=== PATIENT | female | born 1940 | race Two or more races ===

== ENCOUNTER 2024-10-04 13:40 | Inpatient (IN) | payer MEDICARE, MEDICAID, SELFPAY ==
[2024-10-04] VITALS (10 sets, daily range): BP systolic 110–192; BP diastolic 55–84; PULSE 68–107; RESP 16–24; TEMP 36.3–38.6; O2SAT 95–97; BMI 24.3; BMI 24.4
--- NOTE | 2024-10-04 14:15 | EKG_ITS ---
[facility] Test Date: 2024-10-04 Pat Name: KEHINDE ORTIZ Department: Room: - Gender: Female Day Care Assistant: : 1940 Requested By: Deanna Pimentel ([facility]) Micaela Order Number: [id number] Reading MD: Deanna Pimentel ([facility]) Micaela Measurements Intervals [place] Rate: 103 P: 95 OR: 141 QRS: 4 QRSD: 81 T: 32 QT: 307 QTc: 403 Interpretive Statements SINUS TACHYCARDIA NONSPECIFIC T-WAVE ABNORMALITY ABNORMAL RHYTHM ECG No previous ECG available for comparison /store/S0/[id number]/ecg/[id number].pdf
--- NOTE | 2024-10-04 14:19 | PD.EDRME ---
Rapid Medical Screening Exam RME Arrival date/time: 10/04/24 13:40 This is an 83-year-old female presents the emergency department accompanied with granddaughter for complaints of generalized malaise fatigue and recent UTI. I have greeted and performed a focused initial assessment of this patient. Initial appropriate labs ordered at this time. A comprehensive ED assessment and evaluation of the patient and analysis of all test and completion of medical decision making process will be conducted by additional ED provider. Chief Complaint: General Adult/Misc Complain Time Seen by Provider: 10/04/24 13:54 Vital signs: Vital Signs Temperature 99.7 F 10/04/24 13:57 Pulse Rate 107 H 10/04/24 13:57 Respiratory Rate 18 10/04/24 13:57 Blood Pressure 192/84 H 10/04/24 13:57 Pulse Oximetry (%) 95 10/04/24 13:57 Oxygen Delivery Method Room Air 10/04/24 13:57
[2024-10-04 14:39] LABS: Lactate (Lactic Acid) 2.4 mMol/L (0.4-2.0)
[2024-10-04 14:40] LABS: Basophils % (Auto) 0 % (0-2.5); Eosinophils % (Auto) 0 % (0-10); Immature Granulocytes % (Auto) 1 % (0-0); Immature Granulocytes Auto 0.05 Thou/mm3 (0.00-0.00); Lymphocytes # (Auto) 0.9 Thou/mm3 (1.0-4.8); Lymphocytes % (Auto) 12 % (10-50); Mean Corpuscular HGB Conc 32.3 g/dl (31.0-37.0); Mean Corpuscular Hemoglobin 26.5 pg (25.0-35.0); Mean Corpuscular Volume 82 fL (80-100); Monocytes # (Auto) 1.1 Thou/mm3 (0.0-0.8); Monocytes % (Auto) 14 % (0-12); Neutrophils # (Auto) 5.7 Thou/mm3 (1.8-7.7); Neutrophils % (Auto) 73 % (37-80); Nucleated Red Blood Cell % 0 /100 WBC (0); Platelet Count 350 Thou/mm3 (140-440); RDW Standard Deviation 44.6 fL (36.4-46.3); Red Blood Count 3.77 Miln/mm3 (4.00-5.20); White Blood Count 7.7 Thou/mm3 (3.6-11.0)
[2024-10-04 15:05] LABS: INR 1.2 (0.9-1.3); Prothrombin Time 12.7 Seconds (9.0-12.2)
[2024-10-04 15:09] LABS: Alanine Aminotransferase 52 U/L (10-49); Albumin, Serum 3.5 gm/dL (3.4-4.8); Albumin/Globulin Ratio 0.6 (1.2-2.2); Alkaline Phosphatase 114 U/L (46-116); Anion Gap 10 (7-16); Aspartate Amino Transferase 77 U/L (0-34); BUN/Creatinine Ratio 23 Ratio (12-20); Bilirubin,Total 1.2 mg/dL (0.3-1.2); Blood Urea Nitrogen 25 mg/dL (9-23); Calcium 9.3 mg/dL (8.3-10.6); Calcium (Corrected) 9.7 mg/dL (8.5-10.1); Chloride 97 mMol/L (98-107); Creatinine (Component) 1.1 mg/dL (0.6-1.3); Estimated Creatinine Clearance 25.7 mL/min (>60); Globulin 5.5 gm/dL (2.3-3.5); Glucose 130 mg/dL (74-106); Magnesium 1.9 mg/dL (1.6-2.6); Osmolality,Calculated 263 (275-295); Potassium 4.4 mMol/L (3.4-5.1); Procalcitonin 1.01 ng/ml (0.0-0.49); Sodium 128 mMol/L (136-145); Troponin I < 0.020 ng/mL (0.0-0.045); eGFR 49 See Note
[2024-10-04 15:12] LABS: Collection Type, Urine Clean Catch
[2024-10-04 15:21] LABS: B-Type Natriuretic Peptide 134 pg/mL (0-100)
[2024-10-04 15:42] LABS: Bacteria,Urine 4+; Bilirubin,Urine Negative (Negative); Blood,Urine 1+ (Negative); Clarity,Urine Turbid (Clear/Hazy); Color,Urine Yellow (Lt Yel-Yel); Glucose, Urine Negative (Negative); Ketones,Urine Negative (Negative); Leukocyte Esterase,Urine Positive (Negative); Nitrite,Urine Negative (Negative); PH,Urine 5.5 (5.0-7.0); Protein,Urine 1+ (Neg - Trace); RBC,Urine 4 /hpf (0-3); Specific Gravity,Urine 1.021 (1.001-1.035); Squamous Epithelial Cell,Urine 1 /hpf (0-5); Transitional Epi Cells,Urine 1 /hpf (0-5); WBC,Urine 131 /hpf (0-5)
--- NOTE | 2024-10-04 15:48 | PC.NURSE ---
PT IN BY DAUGHTER FOR UNSTEADY GAIT, LETHARGIC, AND DECREASED APPETITE AND URINARY SYMPTOMS. PT HAS SEEN HER PMD ABOUT A WEEK AGO AND IS AWAITING RESULTS OF URNIE. DAUGHTER STATES THAT THIS IN NOT THE PT'S BASELINE. PT IS A/OX3, UNABLE TO GIVE THE DATE. PT DOES STATES THAT PMD STATES THAT SHE MAY HAVE A VIRUS OR A UTI. PT IS RESTING WITH NO DISTRESS NOTED AT THIS TIME. PT IS CONNETED TO MONITOR, DAUGHTER IS AT BEDSIDE AND CALL LIGHT IS WITH IN REACH.
--- NOTE | 2024-10-04 16:08 | EDNOTE_ITS ---
ED General RME/HPI General Chief complaint: General Adult/Misc Complain Stated complaint: WEAKNESS WITH N/V, PAINFUL URINATION Time Seen by Provider: 10/04/24 13:54 Arrival date/time: 10/04/24 13:40 RME / HPI RME / HPI narrative: 10/04/24 13:40 This is an 83-year-old female presents the emergency department accompanied with granddaughter for complaints of generalized malaise fatigue and recent UTI. I have greeted and performed a focused initial assessment of this patient. Initial appropriate labs ordered at this time. A comprehensive ED assessment and evaluation of the patient and analysis of all test and completion of medical decision making process will be conducted by additional ED provider. DR. SANDERS MAIN ED EVALUATION: 83 year old female presents to the Emergency Department accompanied by her daughter who translated with complaints of fevers, chills, sweating, nausea, vomiting, decreased appetite, weight loss, generalized weakness and now unsteady. Onset of symptoms 2 weeks intermittently. Per daughter, patient is usually very active and walks a lot without a cane or walker but in the last week she just wants to sleep and rest. Daughter is concerned that patient is too weak and now is at risk for falling. Patient denies any of the following: fall, injury, cough, blood in the stools, diarrhea, back pain, skin rash or sores, or any other symptoms at this time. PMHx: Hypertension. Tubal Ligation. Last UTI was diagnosed 1 year ago and followed as an outpatient. Allergies to Tylenol and penicillins, both cause hives. Social Hx: No tobacco, alcohol, or substance use. PCP is at [facility] Medications ?Medication ?Instructions ?Recorded ?Confirmed metoprolol succinate 50 mg 50 mg PO BID 10/04/2410/04 tablet,extended release 24 hr Previous Rx's ?Medication ?Instructions ?Recorded ibuprofen 600 mg tablet 600 mg PO Q6H PRN pain #30 t abs 12/11/20 Allergies Allergy/AdvReac Type Severity Reaction Status Date / Time acetaminophen (From Tylenol) Allergy Severe Hives Verified 10/04/24 13:43 Penicillins Allergy Severe RASH,HIVES Verified 10/04/24 13:43 Review of Systems Review of Systems Systems Reviewed: All systems reviewed, normal except as documented Narrative Review of Systems: Constitutional: POSITIVES: fevers, chills, sweating, decreased appetite, weight loss, generalized weakness Eyes: DENIES: loss of vision; Head/Ear/Nose: DENIES: loss of hearing. Throat: DENIES: dysphagia. Cardiovascular: DENIES: chest pain, dyspnea, or syncope. Respiratory: DENIES: shortness of breath; Gastrointestinal: POSITIVES: nausea, vomiting DENIES: rectal bleeding or melena. Genitourinary: DENIES: dysuria (painful or difficult urination); Musculoskeletal: DENIES: arthralgia (pain in a joint); Skin: DENIES: rash; Neurological: POSITIVES: generalized weakness DENIES: loss of function or movement; Psychiatric: DENIES: recent major life stressor, emotional problem, illicit drug use or abuse; Endocrinology: DENIES: weight change,; Hematologic/Lymphatic: DENIES: abnormal bruising. Allergic/Immunologic: DENIES: urticaria (hives). Past Medical History Past Medical History CARDIAC: Positive Hypertension OTHER HISTORY: Positive Anesthesia Reactions (HARD TIME WAKING UP) Surgical History SURGICAL: Positive Tubal Ligation OTHER SURGICAL HX: HEEL SPURS REMOVED Social History SMOKING STATUS: Never smoker SUBSTANCE USE: does not use ALCOHOL: Never ED Exam Narrative Physical exam: Physical Exam: General: The vital signs were reviewed. I walk in the room at 1620 hrs. she is got a fever 101.3 she is tachycardic. She is alert appears tired but interacts. Eyes appear little sunken. The patient is non-toxic, in no apparent distress and appears healthy with a patent airway, no respiratory distress and has no apparent circulatory problems. Head & Scalp: Normocephalic, atraumatic. Face: Appears normal and is without lesions, deformity. Ears: Left external pinna appears normal. Right external pinna appears normal. Eyes: The sclera is anicteric. No obvious photophobia. The Left and Right Orbit/Lid/Conjunctiva appears normal without swelling, discoloration or injection. Nose: The nose is without deformity, discharge or tenderness; Throat: Appears normal. The mucous membranes are pink and moist without exudates, redness or mass seen. The tongue appears normal. Neck: The neck is supple and no apparent mass or adenopathy. Chest: The chest wall is normal in size and symmetry and has no chest wall tenderness or crepitus. The patient displays normal ventilator effort without retractions, accessory muscle use and has adequate air movement bilaterally with no wheezes and no rales. Cardiovascular: Regular rate and rhythm; No murmurs, rubs, or gallops; Gastrointestinal: The abdomen appears normal. No obvious hernias or mass. The abdomen is soft and benign, non-distended, with no pain, no guarding and no rebound tenderness. Bowel sounds are present and normal sounding. No CVA tenderness. Genitourinary: Back/Spine: Normal inspection Extremities/Musculoskeletal/lymphatic: The bilateral upper and lower extremities are warm. There is no evidence of arterial insufficiency. There is no evidence of venous insufficiency/edema. The patient spontaneously moves bilateral upper and lower extremities with no pain and no limitation of movement. There is no apparent, injury or trauma. Skin: The skin is warm, dry and intact. No rashes. No petechia. No purpura. No abnormal bruising. The color is appropriate with no cyanosis. Mental status/Psychiatric: Mental status is appropriate for age. The patient has no apparent delusions, visual hallucinations, no apparent audible hallucinations. The patient has no apparent suicidal thoughts/ideation and no apparent homicidal thoughts/ideation. Neurological: The patient is awake, alert, interactive, cordial, cooperative and is oriented to name and situation. The patient follows commands and answers historical question with no impairment. There is no visual disturbance apparent. The pupils are equal and reactive bilaterally with normal eye movements and no diplopia The bilateral upper and lower extremities have normal strength, normal range of motion and normal functioning. The gait, station and balance were not tested due to acuity Course Course Course Narrative: 1622: Sepsis alert initiated. Orders made at this time are congruent with ED Adult Sepsis Order List. Re-evaluation is to be completed. 1656: Fluids started. 1726: Sepsis reassessment performed consisting of lab review, vitals, physical exam including auscultation of heart, lungs, and visual evaluation of capillary refills, mucosal membranes and extremities. Quality Measures Current suspected stage: sepsis Possible source: unknown Blood cultures ordered: yes Antibiotic ordered: Yes Pertinent labs: 10/04/24 10/04/24 14:34 17:10 Lactic Acid 2.4 H mMol/L 1.7 mMol/L (0.4-2.0) (0.4-2.0) Procalcitonin 1.01 H ng/ml (0.0-0.49) sepsis Orders Category Date Time Status Bedside COVID-19 Antigen Test NOW Care 10/04/24 16:18 Active Bedside Influenza A&B Antigen Test NOW Care 10/04/24 16:18 Completed EKG (ED ONLY) *Do not use* NOW Care 10/04/24 14:15 Completed Miscellaneous Nursing Order X1 Care 10/04/24 16:31 Active EKG (ED Only) Stat Exams 10/04/24 14:15 Draft XR chest 1V portable Stat Exams 10/04/24 16:17 Completed BNP [B-Type Natriuretic Peptide] Stat Lab 10/04/24 14:34 Completed Blood Culture (Lab) Stat Lab 10/04/24 17:10 Received CBC Stat Lab 10/04/24 14:34 Completed Comprehensive Metabolic Panel Stat Lab 10/04/24 14:34 Completed Lactate (Lactic Acid) Stat Lab 10/04/24 14:34 Completed Lactate (Lactic Acid) Stat Lab 10/04/24 17:10 Completed Magnesium Stat Lab 10/04/24 14:34 Completed Procalcitonin Stat Lab 10/04/24 14:34 Completed Prothrombin Time with INR Stat Lab 10/04/24 14:34 Completed RSV [Respiratory Syncytial Virus Ag] Stat Lab 10/04/24 16:33 Completed Strep A Rapid Stat Lab 10/04/24 16:33 Completed Troponin I Stat Lab 10/04/24 14:34 Completed Urinalysis Stat Lab 10/04/24 14:43 Completed Urine Culture Stat Lab 10/04/24 14:43 Received Ibuprofen Tab [Motrin Tab] Med 10/04/24 17:23 Discontinued 400 mg PO X1 ONE Sodium Chloride 0.9% 1000 ml [Ns] 1,000 ml Med 10/04/24 16:35 Discontinued IV 1,500 mls/hr Sodium Chloride 0.9% 1000 ml [Ns] 1,534 ml Med 10/04/24 17:08 Active IV 1,534 mls/hr cefTRIAXone/D5w 1gm IV premix [Rocephin/D5w 1gm IV Med 10/04/24 16:18 Discontinued premix] 1 gm in 50 ml IV X1 Vital Signs Vital signs: Vital Signs Temperature 99.7 F 10/04/24 13:57 Pulse Rate 107 H 10/04/24 13:57 Respiratory Rate 18 10/04/24 13:57 Blood Pressure 192/84 H 10/04/24 13:57 Pulse Oximetry (%) 95 10/04/24 13:57 Oxygen Delivery Method Room Air 10/04/24 13:57 [facility] Patient data External records reviewed:: [facility] previous records (Reviewed last ED visit dated 12/11/20 discharged with the following: Hip pain, bilateral) Clinical information provided by:: patient and family (daughter who translated) Social determinants that could affect healthcare access:: none Patient has the following chronic illnesses:: Hypertension. Tubal Ligation. Last UTI was diagnosed 1 year ago and followed as an outpatient. Allergies to Tylenol and penicillins, both cause hives. How is presenting disease/condition affected by chronic disease/condition?: e xacerbated by Evaluation data The following diagnostics were reviewed and interpreted by me:: lab results, radiology exam(s) and EKG tracing(s) (EKG#1: EKG at 1428 hours. Interpreted by me: sinus tachycardia, rate 103, no STEMI) Lab and/or radiology exams considered but not ordered:: none Interpretation Summary: See above under [facility] narrative. RADIOLOGY Procedure(s): XR chest 1V portable Accession Number(s): [id number] cc: Verna Moreno; Thierry Sanders MD; Jose Galo MD~ Examination: AP chest single view TECHNIQUE: AP portable semiupright chest single view Exam date and time: October 04, 2024 at 1547 hours INDICATIONS: Fever weakness beginning 3 days ago FINDINGS: Normal heart size Mild accentuation of the basilar bronchovascular markings No pneumonia. Prominent osteopenia IMPRESSION: Mild basilar bronchitis pattern Dictated By: Jose Galo MD Medications Medications considered but not ordered:: none Medication administrations:: Medication Administration History Sodium Chloride (Ns) 1,534 mls @ 1,534 mls/hr 30 ml/kg infuse over 60 min (1534 ml) IV .Q1H ONE; Protocol Stop: 10/04/24 18:07 Last Admin: 10/04/24 17:18 Dose: 1,534 mls/hr Documented By: BELA Discontinued Medications Ceftriaxone Sodium/Dextrose (Rocephin/D5w 1gm Iv Premix) 1 gm in 50 mls @ 100 mls/hr IV X1 ONE Stop: 10/04/24 16:47 Last Infusion: 10/04/24 17:55 Dose: Infused Documented By: VRLuzma Admin: 10/04/24 17:14 Dose: 100 mls/hr Documented By: BELA Sodium Chloride (Ns) 1,000 mls @ 1,500 mls/hr IV .Q40M ONE; Protocol Stop: 10/04/24 17:14 Last Admin: 10/04/24 17:18 Dose: Not Given Documented By: BELA Non-Admin Reason: Cancelled by Provider Ibuprofen (Ibuprofen Tab 400 Mg Tablet) 400 mg PO X1 ONE Stop: 10/04/24 17:24 Last Admin: 10/04/24 17:41 Dose: 400 mg Documented By: BELA see above if any Consultations Consultation(s) initiated? (list below): Yes Consultation #1 (Physician, Specialty, Details): Discussed test HPI, PMHx, lab, radiology results and/or management with hospitalist. Will admit for further evaluation and management. Accepts patient for admission. Time: 17:59 Diagnosis Differential Diagnosis ED Complaint MDM: UTI, sepsis, viral illness Most likely diagnosis given after review of the tests above:: See below Admission Indicated Admission indicated?: indicated Explain why admission is indicated or not indicated:: Diagnoses meet admission criteria. Admission Request Was there a request for admission?: Yes Admission Attestation Admission request attestation: Discussed case with [] from Hospitalist service regarding admission. Discussed patients ED course, exam findings, labs, and radiology results. The Hospitalist [agrees,declines] to accept the patient for admission. Disposition Plan Disposition Plan: Admit Medical Decision Making MDM Narrative MDM Narrative: Patient was moved from the waiting room to room 10 and it is apparent she has a fever now she is tachycardic she is got a UTI and a septic alert was called based on that. Lactic acid is 2.4. Rocephin has been ordered and a fluid bolus is going to be initiated here. Patient has been sick for the last 2 weeks with fevers and chills off-and-on with some nausea and vomiting and decreased p.o. intake and in the last 24 hours she becomes so weak that she is unable to walk on her feet and is very unsteady and at risk for falling. This history is provided by the patient's daughter who is a nurse for [employer] Patient has had outpatient UTIs but not been admitted and has not been at this hospital for over 4 years Laboratory studies reveal RSV and group A strep negative. Urine has 131 white blood cells present. 4 red cells. BNP is elevated 134. Troponin is negative total bilirubin is 1.2 AST 77 ALT is 52 slightly elevated. BUN 25 creatinine 1.1 consistent with prerenal azotemia and mild dehydration. Anion gap is 10 carbadox it is slightly low at 21. PT/INR 12.7 and 1.2. White count of 7.7 hemoglobin is 10.0 with a mild anemia Call the hospital spoke with Dr. Mo and they will admit the patient for sepsis urinary tract infection and weakness. Corrine Reid am scribing for and in the presence of Dr. Sanders. Differential Diagnosis Differential Diagnosis: UTI, sepsis, viral illness Lab Data 10/04/24 14:34 10/04/24 14:34 Labs: Lab Results 10/04/24 10/04/24 10/04/24 Range/Units 14:34 14:43 16:33 WBC 7.7 (3.6-11.0) Thou/mm3 RBC 3.77 L (4.00-5.20) Miln/mm3 Hgb 10.0 L (12.0-16.0) g/dL Hct 31.0 L (36.0-46.0) % MCV 82 (80-100) fL MCH 26.5 (25.0-35.0) pg MCHC 32.3 (31.0-37.0) g/dl RDW Std Deviation 44.6 (36.4-46.3) fL Plt Count 350 (140-440) Thou/mm3 Neut % (Auto) 73 (37-80) % Lymph % (Auto) 12 (10-50) % Lassen % (Auto) 14 H (0-12) % Eos % (Auto) 0 (0-10) % Baso % (Auto) 0 (0-2.5) % Neut # (Auto) 5.7 (1.8-7.7) Thou/mm3 Lymph # (Auto) 0.9 L (1.0-4.8) Thou/mm3 [place]assen # (Auto) 1.1 H (0.0-0.8) Thou/mm3 Eos # (Auto) 0.0 (0.0-0.5) Thou/mm3 Baso # (Auto) 0.0 (0.0-0.2) Thou/mm3 Immature Gran # (Auto) 0.05 H (0.00-0.00) Thou/mm3 Absolute Nucleated RBC 0.00 (0.00-0.00) Thou/mm3 Immature Gran % 1 H (0-0) % Nucleated RBC % 0 (0) /100 WBC PT 12.7 H (9.0-12.2) Seconds INR 1.2 (0.9-1.3) Sodium 128 L (136-145) mMol/L Potassium 4.4 (3.4-5.1) mMol/L Chloride 97 L (98-107) mMol/L Carbon Dioxide 21.0 (20.0-31.0) mMol/L Anion Gap 10 (7-16) BUN 25 H (9-23) mg/dL Creatinine 1.1 (0.6-1.3) mg/dL Estim Creat Clear Calc 25.7 L (>60) mL/min eGFR 49 L (60 - ) See Note BUN/Creatinine Ratio 23 H (12-20) Ratio Glucose 130 H (74-106) mg/dL Calculated Osmolality 263 L (275-295) Lactic Acid 2.4 H (0.4-2.0) mMol/L Calcium 9.3 (8.3-10.6) mg/dL Corrected Calcium 9.7 (8.5-10.1) mg/dL Magnesium 1.9 (1.6-2.6) mg/dL Total Bilirubin 1.2 (0.3-1.2) mg/dL AST 77 H (0-34) U/L ALT 52 H (10-49) U/L Alkaline Phosphatase 114 (46-116) U/L Troponin I < 0.020 (0.0-0.045) ng/mL B-Natriuretic Peptide 134 H (0-100) pg/mL Total Protein 9.0 H (5.7-8.2) gm/dL Albumin 3.5 (3.4-4.8) gm/dL Globulin 5.5 H (2.3-3.5) gm/dL Albumin/Globulin Ratio 0.6 L (1.2-2.2) Procalcitonin 1.01 H (0.0-0.49) ng/ml Ur Collection Type Clean Catch Urine Color Yellow (Lt Yel-Yel) Urine Clarity Turbid A (Clear/Hazy) Urine pH 5.5 (5.0-7.0) Ur Specific [place] 1.021 (1.001-1.035) Urine Protein 1+ A (Neg - Trace) Urine Glucose (UA) Negative (Negative) Urine Ketones Negative (Negative) Urine Blood 1+ A (Negative) Urine Nitrite Negative (Negative) Urine Bilirubin Negative (Negative) Urine Urobilinogen (Auto) 3.0 (0.0-1.0) mg/dL Ur Leukocyte Esterase Positive (Negative) Urine RBC 4 H (0-3) /hpf Urine WBC 131 H (0-5) /hpf Ur Squamous Epith Cells 1 (0-5) /hpf Ur Transition Epith Cell 1 (0-5) /hpf Urine Bacteria 4+ A (None) RSV Rapid Negative (Negative) Group A Strep Rapid Negative (Negative) 10/04/24 Range/Units 17:10 WBC (3.6-11.0) Thou/mm3 RBC (4.00-5.20) Miln/mm3 Hgb (12.0-16.0) g/dL Hct (36.0-46.0) % MCV (80-100) fL MCH (25.0-35.0) pg MCHC (31.0-37.0) g/dl RDW Std Deviation (36.4-46.3) fL Plt Count (140-440) Thou/mm3 Neut % (Auto) (37-80) % Lymph % (Auto) (10-50) % Lassen % (Auto) (0-12) % Eos % (Auto) (0-10) % Baso % (Auto) (0-2.5) % Neut # (Auto) (1.8-7.7) Thou/mm3 Lymph # (Auto) (1.0-4.8) Thou/mm3 Lassen # (Auto) (0.0-0.8) Thou/mm3 Eos # (Auto) (0.0-0.5) Thou/mm3 Baso # (Auto) (0.0-0.2) Thou/mm3 Immature Gran # (Auto) (0.00-0.00) Thou/mm3 Absolute Nucleated RBC (0.00-0.00) Thou/mm3 Immature Gran % (0-0) % Nucleated RBC % (0) /100 WBC PT (9.0-12.2) Seconds INR (0.9-1.3) Sodium (136-145) mMol/L Potassium (3.4-5.1) mMol/L Chloride (98-107) mMol/L Carbon Dioxide (20.0-31.0) mMol/L Anion Gap (7-16) BUN (9-23) mg/dL Creatinine (0.6-1.3) mg/dL Estim Creat Clear Calc (>60) mL/min eGFR (60 - ) See Note BUN/Creatinine Ratio (12-20) Ratio Glucose (74-106) mg/dL Calculated Osmolality (275-295) Lactic Acid 1.7 (0.4-2.0) mMol/L Calcium (8.3-10.6) mg/dL Corrected Calcium (8.5-10.1) mg/dL Magnesium (1.6-2.6) mg/dL Total Bilirubin (0.3-1.2) mg/dL AST (0-34) U/L ALT (10-49) U/L Alkaline Phosphatase (46-116) U/L Troponin I (0.0-0.045) ng/mL B-Natriuretic Peptide (0-100) pg/mL Total Protein (5.7-8.2) gm/dL Albumin (3.4-4.8) gm/dL Globulin (2.3-3.5) gm/dL Albumin/Globulin Ratio (1.2-2.2) Procalcitonin (0.0-0.49) ng/ml Ur Collection Type Urine Color (Lt Yel-Yel) Urine Clarity (Clear/Hazy) Urine pH (5.0-7.0) Ur Specific [place] (1.001-1.035) Urine Protein (Neg - Trace) Urine Glucose (UA) (Negative) Urine Ketones (Negative) Urine Blood (Negative) Urine Nitrite (Negative) Urine Bilirubin (Negative) Urine Urobilinogen (Auto) (0.0-1.0) mg/dL Ur Leukocyte Esterase (Negative) Urine RBC (0-3) /hpf Urine WBC (0-5) /hpf Ur Squamous Epith Cells (0-5) /hpf Ur Transition Epith Cell (0-5) /hpf Urine Bacteria (None) RSV Rapid (Negative) Group A Strep Rapid (Negative) Critical Care Time Critical Care Time Critical Care Time: Yes Total Critical Care Time (min.): 45 Attestation: The high probability of sudden, clinically significant deterioration in the patient?s condition required the highest level of my preparedness to intervene urgently. The services I provided to this patient were to treat and/or prevent clinically significant deterioration. Services included the following: chart data review, reviewing nursing notes and/or old charts, documentation time, income tax consultant collaboration regarding findings and treatment options, medication orders and management, direct patient care, vital sign assessments and ordering, interpreting and reviewing diagnostic studies and lab tests. Aggregate critical care time includes only time during which I was engaged in work directly related to the patient?s care, as described above, whether at bedside or elsewhere in the Emergency Department. It did not include time spent performing other reported procedures or the services of residents, students, nurses or physician assistants. Discharge Plan Plan Patient Disposition: Admit Acute Care w/in Hospital Disposition Comment: Hospitalist to admit Prescriptions/Referrals Prescriptions/Med Rec: No Action ibuprofen 600 mg tablet 600 mg PO Q6H PRN (Reason: pain) Qty: 30 0RF metoprolol succinate 50 mg tablet extended release 24 hr 50 mg PO BID Patient Comments: take 1 tablet by mouth twice a day Referrals: Venra Moreno [Primary Care Provider] - In 1 week Problem List Clinical Impression: Sepsis, Urinary tract infection, Weakness, Elevated lactic acid level, Unable to ambulate Patient/Caregiver Discharge Instructions Print Language: Kazakh Stand Alone Forms: Maria Guadalupe Award Info., Patient Portal Info Letter
--- NOTE | 2024-10-04 16:17 | XR_ITS ---
Examination: AP chest single view TECHNIQUE: AP portable semiupright chest single view Exam date and time: October 04, 2024 at 1547 hours INDICATIONS: Fever weakness beginning 3 days ago FINDINGS: Normal heart size Mild accentuation of the basilar bronchovascular markings No pneumonia. Prominent osteopenia IMPRESSION: Mild basilar bronchitis pattern
[2024-10-04 17:10] LABS: Strep A Rapid Negative (Negative)
[2024-10-04] MEDS: cefTRIAXone/D5w 1gm IV premix 1 GM/50 ML BAG IV (17:14)
[2024-10-04 17:17] LABS: Respiratory Syncytial Virus Ag Negative (Negative)
[2024-10-04 17:22] LABS: Lactate (Lactic Acid) 1.7 mMol/L (0.4-2.0)
[2024-10-04 17:36] LABS: Reflex Lactate? Y
[2024-10-04] MEDS: IBUPROFEN TAB 400 MG TABLET PO (17:41)
--- NOTE | 2024-10-04 20:13 | XR_ITS ---
Examination: CT abdomen and pelvis without contrast. Coronal 3-D reconstructions. Sagittal 2-D reconstructions. Date and time of exam:October 04, 2024 at 2014 hours INDICATIONS: Urinary tract infections flank pain hematuria today CTDI: vol (mGy): 6.31 DLP: (mGycm): 337 Technique: Axial images of the abdomen have been obtained, 3 mm slice thickness Intravenous contrast material has not been administered. Low dose protocols were performed. One or more of the following dose reduction techniques were used; automated exposure control, adjustment of the mA and/or KV according to patient size, use of iterative reconstruction technique. Findings: Atelectasis versus mild pneumonia left base Trace pericardial effusion. Liver is irregular in contour fatty infiltration Mildly dense gallbladder Spleen not enlarged No pancreatic or adrenal mass Mild bilateral renal parenchymal scar formation No hydronephrosis or renal or ureteral calculi About aortic calcification no aneurysmal dilatation Normal appendix 15 mm fat-containing umbilical hernia Atrophic uterus No pelvic mass No bladder calculi or bladder mass Severe osteopenia chronic compression fracture L2, L1 IMPRESSION: Atelectasis versus mild pneumonia left base, clinical correlation advised Primary hepatocellular disease versus cirrhosis Mild bilateral renal parenchymal scar formation No renal or ureteral calculi, no hydronephrosis Normal appendix No bladder mass or bladder calculi
--- NOTE | 2024-10-04 20:19 | PC.NURSE ---
Pt taken to CT via [facility]
--- NOTE | 2024-10-04 21:35 | ESHP_ITS ---
<Statement entered by Victoriano Ceballos MD - 10/05/24 05:15> I reviewed above note and agree with findings and plans. I have also personally examined the patient with medicine team and went over assessment and plan with medical team including social media intern and resident physician. Documentation for date of: 10/04/24 HPI History of Present Illness Chief complaint: Generalized bodyache History of present illness: HPI: An 83 years old male patient known case of HTN, was brought to the ED due hx of 2 weeks of dysurea and frequency associated with dark urine discoloration. The daughter who works as a nurse reported that she has not used any antibiotics. Today, her daughter noticed that the patient looks week and lethargic. Patient started to complain of generalized weakness and arthralgia associated with low grade fever and chills. She also mentioned bloody urine. Patient denied any chest or abdominal pain, however she reported some nausea and anorexia. Home medications: ED course: on presentation patient met sepsis criteria, He has HR of 107, BP was 192/84, temp 101.3, looked ill, CBC showed Hb 10.0 WBC WNL, CMP showed Na 128, BUN was 25, S.cr 1.1, Gluc 130, AST and ALT 77 and 52 respectively, BNP 134, Procal 1.01, UA showed [id number], +4 Bacteria, + blood. Abdomen/Pelvice CT WO showed Atelectasis versus mild pneumonia left base, Primary hepatocellular disease versus cirrhosis. Patient was given 2L of fluids, and was given ceftrixone. PMH:HTN Social hx: Alcohol:Denied Tobacco:Denied Illicit drugs:Denied Allergies:Pencillin and Tylenol Review of Systems Review of Systems Systems Reviewed: All systems reviewed, normal except as documented Exam Vital Signs Temp Pulse Resp BP Pulse Ox O2 Del Method 97.9 F 72 16 110/55 L 96 Room Air 10/04/24 21:05 10/04/24 21:05 10/04/24 21:05 10/04/24 21:05 10/04/24 21:05 10/04/24 21:05 Narrative Exam GEN: AOx3,Turkmen speaker able to speak full sentences HEENT: NC/AC, oral mucosa moist, neck supple CVS: RRR, S1-S2 present, no murmurs appreciated RESP: CTAB GI: soft,non distended, non tender, NBS MSK: able to move all 4 limbs, no lower extremity edema SKIN: warm and dry VAMP MARKER: CN II-XII and Sensation grossly intact. Results: Labs 10/04/24 14:34 10/04/24 14:34 Labs: Short CBC 10/04/24 Range/Units 14:34 WBC 7.7 (3.6-11.0) Thou/mm3 Hgb 10.0 L (12.0-16.0) g/dL Hct 31.0 L (36.0-46.0) % Plt Count 350 (140-440) Thou/mm3 BMP 10/04/24 14:34 Sodium 128 L Potassium 4.4 Chloride 97 L Carbon Dioxide 21.0 BUN 25 H Creatinine 1.1 Glucose 130 H Calcium 9.3 Cardiac Enzymes 10/04/24 Range/Units 14:34 Troponin I < 0.020 (0.0-0.045) ng/mL Liver Function 10/04/24 Range/Units 14:34 Total Bilirubin 1.2 (0.3-1.2) mg/dL AST 77 H (0-34) U/L ALT 52 H (10-49) U/L Alkaline Phosphatase 114 (46-116) U/L Albumin 3.5 (3.4-4.8) gm/dL Urine 10/04/24 Range/Units 14:43 Urine Color Yellow (Lt Yel-Yel) Urine Clarity Turbid A (Clear/Hazy) Urine pH 5.5 (5.0-7.0) Ur Specific [place] 1.021 (1.001-1.035) Urine Protein 1+ A (Neg - Trace) Urine Glucose (UA) Negative (Negative) Quality Measures Quality Measures sepsis Current suspected stage: sepsis Possible source: unknown Blood cultures ordered: yes Antibiotic ordered: Yes Advance care planning discussed with:: patient and child Medications Home Medications and Allergies Home Medications ?Medication ?Instructions ?Recorded ?Confirmed ?Type metoprolol succinate 50 mg 50 mg PO BID 10/04/2410/04 History tablet,extended release 24 hr Allergies Allergy/AdvReac Type Severity Reaction Status Date / Time acetaminophen (From Tylenol) Allergy Severe Hives Verified 10/04/24 13:43 Penicillins Allergy Severe RASH,HIVES Verified 10/04/24 13:43 Visit Medications Lactated Ringer's (Lactated Ringers) 1,000 mls @ 75 mls/hr IV .[id number] [facility] Stop: 10/05/24 10:49 Ceftriaxone Sodium 1 gm/ (Sodium Chloride) 50 mls @ 100 mls/hr IV QDAY [facility] Stop: 10/11/24 21:29 Ibuprofen (Ibuprofen Tab 400 Mg Tablet) 400 mg PO Q6HR PRN PRN Reason: Fever > 101 Stop: 11/03/24 21:23 Ibuprofen (Ibuprofen Tab 600 Mg Tablet) 600 mg PO Q6H PRN PRN Reason: PAIN SCALE 1-3 (mild Stop: 11/03/24 21:23 Metoprolol Succinate (Metoprolol Succinate Xl 25 Mg Tabcr) 50 mg PO BID MAGGIE Stop: 11/03/24 21:44 Ondansetron HCl (Ondansetron Inj 2 Mg/Ml Inj 2 Ml) 4 mg IV Q6H PRN; Protocol PRN Reason: NAUSEA OR VOMITING Stop: 11/03/24 21:23 Pantoprazole Sodium (Pantoprazole 40 Mg Tablet) 40 mg PO QDAY [facility] Stop: 11/04/24 08:59 Sennosides (Senna Tablet) 1 tab PO BID PRN; Protocol PRN Reason: CONSTIPATION Stop: 11/03/24 21:23 Discontinued Medications Ceftriaxone Sodium/Dextrose (Rocephin/D5w 1gm Iv Premix) 1 gm in 50 mls @ 100 mls/hr IV X1 ONE Stop: 10/04/24 16:47 Last Infusion: 10/04/24 17:55 Dose: Infused Sodium Chloride (Ns) 1,000 mls @ 1,500 mls/hr IV .Q40M ONE; Protocol Stop: 10/04/24 17:14 Last Admin: 10/04/24 17:18 Dose: Not Given Sodium Chloride (Ns) 1,534 mls @ 1,534 mls/hr 30 ml/kg infuse over 60 min (1534 ml) IV .Q1H ONE; Protocol Stop: 10/04/24 18:07 Last Infusion: 10/04/24 21:24 Dose: Infused Ibuprofen (Ibuprofen Tab 400 Mg Tablet) 400 mg PO X1 ONE Stop: 10/04/24 17:24 Last Admin: 10/04/24 17:41 Dose: 400 mg Assessment & Plan Plan Summary: An 83 years old male patient known case of HTN, was brought to the ED due hx of 2 weeks of dysurea and frequency associated with dark urine discoloration. Patient was admitted for tx of UTI. #Sepsis 2/2 UTI #UTI #Pneumina vs Atelectasis on presentation patient met sepsis criteria, He has HR of 107, BP was 192/84, temp 101.3, looked ill, CBC showed Hb 10.0 WBC WNL, CMP showed Na 128, BUN was 25, S.cr 1.1, Gluc 130, AST and ALT 77 and 52 respectively, BNP 134, Procal 1.01, UA showed [id number], +4 Bacteria, + blood. Abdomen/Pelvice CT WO showed Atelectasis versus mild pneumonia left base howeve, the patient does not complain of any respiratory sx , Primary hepatocellular disease versus cirrhosis. Patient was given 2L of fluids, and was given ceftrixone. Plan - Admit patient to Med-tele - Started on Ceftrixone 1gm Qday - will not pursue PNA management at this time as the patient does not have any respiratory sx. - Follow up on the C/S results - Continue patient on IV fluid 1/2 maintainence for 1L #Elevated liver enzymes Most likely as a result of sepsis, Patient denied the use of any OTC meds. T.bili is within normal limits Plan - Continue to monitor daily - Consider Acute Hepatitis work up if clicially warrented #Hx of HTN Patient was noticed to be taking metoprolol Suc BID 50mg, Need to be reconcilled Plan - Resume home meds Metoprolol PO qday - Labetalol 10 mg Q2h if SBP >180mmHg. Hospital Maintenance: FEN: Cardiac diet DVT ppx:SCD as the patient has hematuria GI ppx:Protonix PO IV lines:PIV Huff:None Code status:DNI Dispo:Med-Tele - Patient's plan and care discussed with my attending, Dr. Tucker Delaney MD Internal Medicine PGY-2
[2024-10-04 22:00] LABS: Thyroid Stimulating Hormone 1.89 uIU/mL (0.55-4.78)
[2024-10-04] MEDS: METOPROLOL SUCCINATE XL 25 MG TABCR 50 MG PO (22:05)
[2024-10-04] MEDS: RINGERS LACTATED 1000 ML 1,000 ML 75 ML IV (22:06)
[2024-10-05] VITALS (12 sets, daily range): BP systolic 126–155; BP diastolic 63–78; PULSE 61–102; RESP 16–23; TEMP 35.7–36.9; O2SAT 93–99
[2024-10-05 05:51] LABS: Basophils % (Auto) 0 % (0-2.5); Eosinophils % (Auto) 0 % (0-10); Hematocrit 28.5 % (36.0-46.0); Hemoglobin 9.1 g/dL (12.0-16.0); Immature Granulocytes % (Auto) 1 % (0-0); Immature Granulocytes Auto 0.06 Thou/mm3 (0.00-0.00); Lymphocytes # (Auto) 0.4 Thou/mm3 (1.0-4.8); Lymphocytes % (Auto) 9 % (10-50); Mean Corpuscular HGB Conc 31.9 g/dl (31.0-37.0); Mean Corpuscular Hemoglobin 26.8 pg (25.0-35.0); Mean Corpuscular Volume 84 fL (80-100); Monocytes # (Auto) 0.6 Thou/mm3 (0.0-0.8); Monocytes % (Auto) 14 % (0-12); Neutrophils # (Auto) 3.4 Thou/mm3 (1.8-7.7); Neutrophils % (Auto) 76 % (37-80); Nucleated Red Blood Cell % 0 /100 WBC (0); Platelet Count 268 Thou/mm3 (140-440); RDW Standard Deviation 45.2 fL (36.4-46.3); White Blood Count 4.5 Thou/mm3 (3.6-11.0)
[2024-10-05 06:22] LABS: Alanine Aminotransferase 39 U/L (10-49); Albumin, Serum 2.8 gm/dL (3.4-4.8); Albumin/Globulin Ratio 0.6 (1.2-2.2); Alkaline Phosphatase 88 U/L (46-116); Anion Gap 10 (7-16); Aspartate Amino Transferase 49 U/L (0-34); BUN/Creatinine Ratio 26 Ratio (12-20); Bilirubin,Total 0.6 mg/dL (0.3-1.2); Blood Urea Nitrogen 26 mg/dL (9-23); Calcium 9.2 mg/dL (8.3-10.6); Calcium (Corrected) 10.2 mg/dL (8.5-10.1); Carbon Dioxide 23.4 mMol/L (20.0-31.0); Chloride 102 mMol/L (98-107); Estimated Creatinine Clearance 28.3 mL/min (>60); Globulin 4.4 gm/dL (2.3-3.5); Glucose 97 mg/dL (74-106); Magnesium 1.8 mg/dL (1.6-2.6); Osmolality,Calculated 274 (275-295); Phosphorous 3.3 mg/dL (2.4-5.1); Potassium 3.8 mMol/L (3.4-5.1); Sodium 135 mMol/L (136-145); Total Protein 7.2 gm/dL (5.7-8.2); eGFR 55 See Note
[2024-10-05] MEDS: METOPROLOL SUCCINATE XL 25 MG TABCR 50 MG PO (08:24)
[2024-10-05] MEDS: Magnesium Sulfate 4 GM Ivpb 4 GM/50 ML BAG IV (08:24)
[2024-10-05] MEDS: PANTOPRAZOLE 40 MG TABLET PO (08:24)
--- NOTE | 2024-10-05 11:30 | ESPR_ITS ---
Documentation for date of: 10/05/24 Subjective Subjective Interval history: 10/05/2024: Overnight admission for 83-year-old female with past medical history of hypertension presenting with 2 weeks of dysuria, frequency hesitancy and hematuria. Patient was admitted for urinary tract infection and elevated liver enzymes likely secondary to sepsis. Patient seen and examined in hospital bed this morning with patient's daughter bedside. Patient denies having any concerning symptoms at this time such as chest pain/tightness, shortness of breath, lower back pain, suprapubic discomfort or dizziness. Patient's family updated and they are in agreement with the plan of continuing IV antibiotics and having physical therapy work with the patient. Will continue to monitor for any acute changes. Exam Vital Signs Temp Pulse Resp BP Pulse Ox O2 Del Method 96.2 F L 63 16 155/71 H 99 Room Air 10/05/24 08:00 10/05/24 08:24 10/05/24 08:00 10/05/24 08:24 10/05/24 08:00 10/05/24 08:00 Narrative Exam Physical Exam: GENERAL: Awake, answering questions appropriately, appears stated age HEENT: NC/AT. Moist mucosa. PERRLA/EOMI. CARDIO: Heart RRR, no obvious murmurs, no JVD. PULM: No coughing or visible SOB. Lungs CTA B/L. GI: Abdomen soft, NT/ND, +BS. SKIN/MSK/EXT: No wounds/discoloration/rashes/edema/amputations noted. +Pedal pulses present B/L. NEURO: Oriented x3, Moves extremities x4, no focal neurologic deficits noted. Objective Labs 10/06/24 05:29 10/06/24 05:29 Labs: Laboratory Results - last 24 hr 10/04/24 10/04/24 10/04/24 14:34 14:43 16:33 WBC 7.7 RBC 3.77 L Hgb 10.0 L Hct 31.0 L MCV 82 MCH 26.5 MCHC 32.3 RDW Std Deviation 44.6 Plt Count 350 Neut % (Auto) 73 Lymph % (Auto) 12 [place] % (Auto) 14 H Eos % (Auto) 0 Baso % (Auto) 0 Neut # (Auto) 5.7 Lymph # (Auto) 0.9 L [place] # (Auto) 1.1 H Eos # (Auto) 0.0 Baso # (Auto) 0.0 Immature Gran # (Auto) 0.05 H Absolute Nucleated RBC 0.00 Immature Gran % 1 H Nucleated RBC % 0 PT 12.7 H INR 1.2 Sodium 128 L Potassium 4.4 Chloride 97 L Carbon Dioxide 21.0 Anion Gap 10 BUN 25 H Creatinine 1.1 Estim Creat Clear Calc 25.7 L eGFR 49 L BUN/Creatinine Ratio 23 H Glucose 130 H Calculated Osmolality 263 L Lactic Acid 2.4 H Calcium 9.3 Corrected Calcium 9.7 Phosphorus Magnesium 1.9 Total Bilirubin 1.2 AST 77 H ALT 52 H Alkaline Phosphatase 114 Troponin I < 0.020 B-Natriuretic Peptide 134 H Total Protein 9.0 H Albumin 3.5 Globulin 5.5 H Albumin/Globulin Ratio 0.6 L Procalcitonin 1.01 H TSH Ur Collection Type Clean Catch Urine Color Yellow Urine Clarity Turbid A Urine pH 5.5 Ur Specific [place] 1.021 Urine Protein 1+ A Urine Glucose (UA) Negative Urine Ketones Negative Urine Blood 1+ A Urine Nitrite Negative Urine Bilirubin Negative Urine Urobilinogen (Auto) 3.0 Ur Leukocyte Esterase Positive Urine RBC 4 H Urine WBC 131 H Ur Squamous Epith Cells 1 Ur Transition Epith Cell 1 Urine Bacteria 4+ A RSV Rapid Negative Group A Strep Rapid Negative 10/04/24 10/05/24 17:10 05:08 WBC 4.5 D RBC 3.40 L Hgb 9.1 L Hct 28.5 L MCV 84 MCH 26.8 MCHC 31.9 RDW Std Deviation 45.2 Plt Count 268 D Neut % (Auto) 76 Lymph % (Auto) 9 L [place] % (Auto) 14 H Eos % (Auto) 0 Baso % (Auto) 0 Neut # (Auto) 3.4 Lymph # (Auto) 0.4 L [place] # (Auto) 0.6 Eos # (Auto) 0.0 Baso # (Auto) 0.0 Immature Gran # (Auto) 0.06 H Absolute Nucleated RBC 0.00 Immature Gran % 1 H Nucleated RBC % 0 PT INR Sodium 135 L Potassium 3.8 D Chloride 102 Carbon Dioxide 23.4 Anion Gap 10 BUN 26 H Creatinine 1.0 Estim Creat Clear Calc 28.3 L eGFR 55 L BUN/Creatinine Ratio 26 H Glucose 97 Calculated Osmolality 274 L Lactic Acid 1.7 Calcium 9.2 Corrected Calcium 10.2 H Phosphorus 3.3 Magnesium 1.8 Total Bilirubin 0.6 D AST 49 H ALT 39 Alkaline Phosphatase 88 D Troponin I B-Natriuretic Peptide Total Protein 7.2 Albumin 2.8 L D Globulin 4.4 H Albumin/Globulin Ratio 0.6 L Procalcitonin TSH 1.89 Ur Collection Type Urine Color Urine Clarity Urine pH Ur Specific [place] Urine Protein Urine Glucose (UA) Urine Ketones Urine Blood Urine Nitrite Urine Bilirubin Urine Urobilinogen (Auto) Ur Leukocyte Esterase Urine RBC Urine WBC Ur Squamous Epith Cells Ur Transition Epith Cell Urine Bacteria RSV Rapid Group A Strep Rapid Quality Measures Quality Measures sepsis Current suspected stage: ruled out Possible source: unknown Blood cultures ordered: yes Antibiotic ordered: Yes Advance care planning discussed with:: patient and child Assessment & Plan Assessment Current Active Medications: Generic Name Dose Route Start Last Admin Trade Name Freq PRN Reason Stop Dose Admin Magnesium Sulfate 4 gm in 50 mls @ 12.5 mls/hr 10/05/24 07:52 10/05/24 08:24 Magnesium Sulfate Ivpb IV 10/05/24 11:51 12.5 mls/hr X1 ONE Administration Ceftriaxone Sodium/Dextrose 1 gm in 50 mls @ 100 mls/hr 10/05/24 12:00 Rocephin/D5w 1gm Iv Premix IV 10/12/24 06:59 QDAY MAGGIE Ibuprofen 400 mg 10/05/24 07:57 Ibuprofen Tab 400 Mg Tablet PO 11/04/24 07:56 Q6HR PRN Pain 1-3 and/or Fever >100.1 Metoprolol Succinate 50 mg 10/05/24 09:00 10/05/24 08:24 Metoprolol Succinate Xl 25 Mg Tabcr PO 11/04/24 08:59 50 mg QDAY MAGGIE Administration Ondansetron HCl 4 mg 10/04/24 21:24 Ondansetron Inj 2 Mg/Ml Inj 2 Ml IV 11/03/24 21:23 Q6H PRN NAUSEA OR VOMITING Protocol Pantoprazole Sodium 40 mg 10/05/24 09:00 10/05/24 08:24 Pantoprazole 40 Mg Tablet PO 11/04/24 08:59 40 mg QDAY MAGGIE Administration Sennosides 1 tab 10/04/24 21:24 Senna Tablet PO 11/03/24 21:23 BID PRN CONSTIPATION Protocol Plan 83 years old male patient known case of hypertension, was brought to the ED due hx of 2 weeks of dysurea and frequency associated with dark urine discoloration. Patient was admitted for tx of UTI. #Urinary Tract Infection #Sepsis, improving Per history, patient's been having 2 weeks of dysuria, frequency, hesitancy and some hematuria In the ED, patient met SIRS criteria with a heart rate of 107, temperature of 101.3 ?F with a source of infection noted with UA and evidence of end-organ dysfunction with elevated liver enzymes Patient denied having any other concerning symptoms such as shortness of breath, chest pain, abdominal pain Urinalysis showed turbid urine with +1 proteinuria, +1 hematuria, pyuria and 4+ bacteria Urine cultures grew gram-negative rods, pending speciation CT abdomen pelvis showed atelectasis versus mild pneumonia left base with no respiratory symptoms and on room air Patient was given 2L of fluids, and was given ceftrixone Plan: Continue IV ceftriaxone Monitor for any acute changes #Normocytic anemia On lab findings, patient has hemoglobin of 9.1 with MCV of 84 Patient denies having any acute blood loss with hematochezia, melena, hematemesis Patient does state that she has hematuria sometimes and UA does show +1 hematuria Differentials include blood loss anemia secondary to hematuria versus iron deficiency anemia, anemia of chronic disease, vitamin deficiency, less likely hemolytic anemia Plan: Follow-up with iron panel, reticulocyte count and ferritin; will consider peripheral smear Follow-up outpatient with PCP #Elevated liver enzymes, downtrending #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 T.bili is within normal limits Patient also has some degree of NAFLD as noted on CT with primary hepatocellular disease versus cirrhosis read Plan: Continue to monitor with morning labs #Hypertension Patient takes metoprolol succinate 50mg Plan Resume home medication Hospital Management: Diet: Cardiac Bowel: Senna Lines: PIV GI prophylaxis: Not needed DVT prophylaxis: SCD Dispo: IV antibiotics for UTI Code: Limited, no intubation Patient seen and examined with attending Dr. Troncoso and senior resident Dr. Massimo Melchor, PGY-1 --- ATTESTATION: I saw and examined the patient this morning, and I agree with current management stated by the resident. Will continue to monitor patient during their stay. Patient is an 83-year-old female past medical history of hypertension was initially admitted on 10/04/2024 due to sepsis secondary to urinary tract infection. In the ED patient was found to be septic with positive UA and CT did not show any signs of pyelonephritis. She was started on IV antibiotics and has been slowly improving. She is also found to have normocytic anemia which we are monitoring. Patient would likely be discharged within 24 to 48 hours once the urine culture is resulted. Disclaimer: Despite multiple revisions, due to the dictation software being used, the document bellow may not be free of grammatical errors including phonetic/typographic errors. However, this does not deter from our commitment to providing health care in the patient's best interest in mind. Dr. Naren Keys, PGY-3 Attending Provider Attestation/Addendum I, Jaqui Troncoso DO, attest that I was physically present for the dumont portions of the service and evaluated the patient with the resident and I reviewed and discussed the case with the resident and agree with the resident's findings and plans of care as documented above Patient seen and evaluated this AM. Daughter at bedside states that the patient often has UTIs but does not complain much. Patient started exhibiting symptoms about 2weeks ago with some dysuria, but resolved. She has been noticeably weaker and eating less the past few days. Urine culture is positive for GNR. Patient is doing well and has no active complaints at this time. She has been receiving rocephin 1 g IV daily. Anticipate DC within next 24h once final cultures and sensitivities have resulted.
[2024-10-05] MEDS: cefTRIAXone/D5w 1gm IV premix 1 GM/50 ML BAG IV (12:11)
--- NOTE | 2024-10-05 16:04 | PC.SS ---
Follow up note: On IV antibiotic for UTI. On IV fluids and waiting for cultures.
[2024-10-06] VITALS (8 sets, daily range): BP systolic 121–140; BP diastolic 64–96; PULSE 80–107; RESP 17–95; TEMP 36.3–36.8; O2SAT 94–96
[2024-10-06 06:24] LABS: Basophils % (Auto) 0 % (0-2.5); Eosinophils % (Auto) 0 % (0-10); Hematocrit 26.6 % (36.0-46.0); Immature Granulocytes % (Auto) 1 % (0-0); Immature Granulocytes Auto 0.04 Thou/mm3 (0.00-0.00); Immature Reticulocyte Fraction 14.1 % (3.0-15.9); Lymphocytes # (Auto) 0.7 Thou/mm3 (1.0-4.8); Lymphocytes % (Auto) 15 % (10-50); Mean Corpuscular HGB Conc 31.6 g/dl (31.0-37.0); Mean Corpuscular Hemoglobin 26.3 pg (25.0-35.0); Mean Corpuscular Volume 83 fL (80-100); Monocytes # (Auto) 0.8 Thou/mm3 (0.0-0.8); Monocytes % (Auto) 15 % (0-12); Neutrophils # (Auto) 3.4 Thou/mm3 (1.8-7.7); Neutrophils % (Auto) 69 % (37-80); Nucleated Red Blood Cell % 0 /100 WBC (0); Platelet Count 263 Thou/mm3 (140-440); RDW Standard Deviation 44.3 fL (36.4-46.3); Reticulocyte % (Auto) 1.4 % (0.5-1.5); Reticulocyte Absolute Auto 44.5 Biln/L (25.0-75.0); Reticulocyte Hgb Content 25.2 pg (28.0-35.0); White Blood Count 4.9 Thou/mm3 (3.6-11.0)
[2024-10-06 06:32] LABS: Hemoglobin 8.4 g/dL (12.0-16.0)
[2024-10-06 06:41] LABS: Alanine Aminotransferase 29 U/L (10-49); Albumin, Serum 2.5 gm/dL (3.4-4.8); Alkaline Phosphatase 81 U/L (46-116); Anion Gap 8 (7-16); Aspartate Amino Transferase 34 U/L (0-34); BUN/Creatinine Ratio 22 Ratio (12-20); Bilirubin,Total 0.4 mg/dL (0.3-1.2); Blood Urea Nitrogen 20 mg/dL (9-23); Calcium 8.5 mg/dL (8.3-10.6); Calcium (Corrected) 9.7 mg/dL (8.5-10.1); Carbon Dioxide 23.3 mMol/L (20.0-31.0); Chloride 102 mMol/L (98-107); Creatinine (Component) 0.9 mg/dL (0.6-1.3); Estimated Creatinine Clearance 31.5 mL/min (>60); Glucose 92 mg/dL (74-106); Magnesium 2.1 mg/dL (1.6-2.6); Osmolality,Calculated 268 (275-295); Potassium 4.1 mMol/L (3.4-5.1); Sodium 133 mMol/L (136-145); eGFR > 60 See Note
[2024-10-06 06:42] LABS: Albumin/Globulin Ratio 0.6 (1.2-2.2); Globulin 3.9 gm/dL (2.3-3.5); Total Protein 6.4 gm/dL (5.7-8.2)
[2024-10-06 07:09] LABS: Ferritin 689 ng/mL (7.3-270.7); Iron 11 mcg/dL (50-170); Percent Iron Saturation 7 % (20-55); Total Iron Binding Capacity 138 mcg/dL (250-425); Unsaturated Iron Binding 127 (225-295)
[2024-10-06] MEDS: METOPROLOL SUCCINATE XL 25 MG TABCR 50 MG PO (09:01)
[2024-10-06] MEDS: cefTRIAXone/D5w 1gm IV premix 1 GM/50 ML BAG IV (09:03)
[2024-10-06] MEDS: FERROUS SULF 325 MG TABLET PO (09:03)
--- NOTE | 2024-10-06 13:40 | ESDS_ITS ---
<Statement entered by Radha Brar MD - 10/07/24 22:09> Patient was seen and examined by me personally. I have reviewed the below documentation by the team resident and agree with its findings with any exceptions as below. Discharge plan was discussed with the attending, Dr. Troncoso. Patient was determined stable for discharge. PT worked with patient and determined she was at her baseline. No need for walker since she has multiple at home. Patient was prescribed course of PO antibiotics for UTI to complete. Radha Brar, PGY-2 <Statement entered by Jaqui Troncoso DO - 10/07/24 08:43> I, Jaqui Troncoso DO, attest that I was physically present for the dumont portions of the service and evaluated the patient with the resident and I reviewed and discussed the case with the resident and agree with the resident's findings and plans of care as documented above Planned Discharge Date 10/06/24 DS: Providers Provider Date of admission: 10/05/24 14:35 Primary care physician: Verna Moreno Admitting Provider: Victoriano Ceballos MD Attending Provider on Admission: Jeffry Melchor MD Consults: 10/05/24 11:30 Referral Physical Therapy Routine Comment: Physician Instructions: Attending Provider on DC: Jeffry Melchor MD Discharging Provider: Jeffry Melchor MD DS: Diagnosis Problem List Completed Was Problem List Reviewed/Reconciled?: Yes Hospital Course Hospital Course Hospital course: 83-year-old female with past medical history of hypertension brought to the ED on 10/04 with 2 weeks of dysuria, frequency and dark urine discoloration. In the ED the patient was tachycardic with a heart rate of 107, hypertensive urgency with a blood pressure 192/84, febrile with a temperature of 101.3. Pertinent lab findings included urinalysis with pyuria and +[address] abdomen pelvis showed atelectasis versus mild pneumonia in the left base but the patient did not have any respiratory symptoms. CT also showed primary hepatocellular disease. Patient was admitted for sepsis secondary to UTI and started on IV antibiotics. Overnight patient's symptoms largely improved urine cultures were positive for pansensitive E. coli. Patient will be discharged in a stable condition with the following strict instructions. Please take cefuroxime 250mg by mouth twice a day for UTI for 5 additional days Please take Ferric citrate 210mg tablet by mouth once a day for Iron deficiency anemia Follow-up with your PCP within 1-2 weeks Continue taking all your home medications as prescribed If your symptoms worsen or if you develop new chest pain, shortness of breath, abdominal pain or bleeding - please come back to the ED immediately. Hospital Diagnosis: #Urinary Tract Infection #Normocytic anemia #Elevated liver enzymes, downtrending #NAFLD #Hypertension Jeffry Melchor, PGY-1 Status at Discharge Overall status at discharge: patient is progressing back to baseline Time Spent with Patient Time attestation: Total time spent providing and/or coordinating discharge services: 45 minutes Time spent: Greater than 30 minutes Exam Vital Signs Temp Pulse Resp BP Pulse Ox O2 Del Method 97.9 F 83 17 130/64 96 Room Air 10/06/24 12:00 10/06/24 12:00 10/06/24 12:00 10/06/24 12:00 10/06/24 12:00 10/06/24 12:00 Narrative Exam Physical Exam: GENERAL: Awake, answering questions appropriately, appears stated age HEENT: NC/AT. Moist mucosa. PERRLA/EOMI. CARDIO: Heart RRR, no obvious murmurs, no JVD. PULM: No coughing or visible SOB. Lungs CTA B/L. GI: Abdomen soft, NT/ND, +BS. SKIN/MSK/EXT: No wounds/discoloration/rashes/edema/amputations noted. +Pedal pulses present B/L. NEURO: Oriented x3, Moves extremities x4, no focal neurologic deficits noted. Discharge Plan Plan Patient Disposition: HOME (Self Care) Patient condition on transfer: Stable Care Plan Goals: Please take cefuroxime 250mg by mouth twice a day for UTI for 5 additional days Please take Ferric citrate 210mg tablet by mouth once a day for Iron deficiency anemia Follow-up with your PCP within 1-2 weeks Continue taking all your home medications as prescribed If your symptoms worsen or if you develop new chest pain, shortness of breath, abdominal pain or bleeding - please come back to the ED immediately. Prescriptions/Referrals Prescriptions/Med Rec: New ferric citrate 210 mg iron tablet 210 mg PO QDAY 30 Days Qty: 30 0RF Rx Instructions: administer with a meal cefuroxime axetil 250 mg tablet 250 mg PO BID 5 Days Qty: 10 0RF Continued ibuprofen 600 mg tablet 600 mg PO Q6H PRN (Reason: pain) Qty: 30 0RF metoprolol succinate 50 mg tablet extended release 24 hr 50 mg PO BID Patient Comments: take 1 tablet by mouth twice a day Referrals: Verna Moreno [Primary Care Provider] - Patient/Caregiver Discharge Instructions Education Materials: Urinary Tract Infections in Women, Understanding Urinary Tract ..., Preventing Falls How to ..., ED CYSTITIS Female Adult, ED Fall Prevention Print Language: Mongolian Stand Alone Forms: [facility] Award Info., Patient Portal Info Letter Discharge Order Discharge Orders: Discharge (Routine); Ordered 10/06/24 Ordered By: Radha Brar Quality Discharge Quality Measures VTE prophylaxis
--- NOTE | 2024-10-06 14:12 | PC.PT ---
PT eval only. Patient is xI with bed mobility, and transfers and is able to ambulate with a FWW xI. Patient is safe to ambulate in the [place] and to the bathroom using a FWW and 1 staff assist for safety. RN made aware.
--- NOTE | 2024-10-06 15:28 | PC.NURSE ---
attempted to call daughter to notify of pts dc and go over dc info no answer voicemail left for kitty daughter
--- NOTE | 2024-10-06 18:10 | PC.NURSE ---
Dr Brar confirmed pt is good to DC. Dc info given to cipriano Acosta at bedside.
== END 2024-10-06 18:40 | disposition home or self-care (01) | DRG 872 ==
LOC: SERX 16:30 → S3NX 10-05 08:28 → SERHOLD 10-05 08:28
PROVIDERS: Nurse Practitioner Primary Care; Student in an Organized Health Care Education/Training Program; Admitting Provider Internal Medicine; Emergency Provider Emergency Medicine; PCP Physician Assistant
DX: A41.51 Sepsis due to Escherichia coli [E. coli] (principal); N39.0 Urinary tract infection, site not specified; E87.20 Acidosis, unspecified; D50.9 Iron deficiency anemia, unspecified; I10 Essential (primary) hypertension; K76.0 Fatty (change of) liver, not elsewhere classified; R31.9 Hematuria, unspecified; E86.0 Dehydration; R26.2 Difficulty in walking, not elsewhere classified; R30.0 Dysuria; I16.0 Hypertensive urgency; Z88.6 Allergy status to analgesic agent; Z88.0 Allergy status to penicillin
CPT/HCPCS: 36415; 71045; 74176; 80053; 80307; 81001; 82728; 83540; 83550; 83605; 83735; 83880; 84100; 84145; 84443; 84484; 85025; 85046; 85610; 87040; 87077; 87086; 87186; 87400; 87634; 87651; 87811; 93005; 93225; 94762; 96361; 96365; 97162; 99291; G0378; J0696; J3475; J7030; J7120; A9270

== ENCOUNTER 2024-10-23 21:06 | Inpatient (IN) | payer MEDICARE, MEDICAID, SELFPAY ==
[2024-10-23 21:09] VITALS: BP 116/90; PULSE 130; PULSE 134; RESP 16; RESP 20; TEMP 36.8; O2SAT 95; O2SAT 96; BMI 22.8
--- NOTE | 2024-10-23 21:15 | PD.EDFALL ---
ED Fall Injury RME/HPI General Chief Complaint: Fall Stated Complaint: FALL Time Seen by Provider: 10/23/24 21:09 Arrival date/time: 10/23/24 21:06 Limitations: no limitations RME / HPI RME / HPI Narrative: Dr. Tesfaye's Main ED Evaluation: 83yo female with a history of HTN BIBA from home presents to the ED for a chief complaint of a ground level fall. Per EMS, family went to check on the patient and found her to be on the floor. Patient states she was getting up out of bed and the room was dark, noting she fell due to not being able to see. Unknown LOC. Patient endorses having pain to the back of her head and RLE pain. She denies any neck pain, chest pain, abdominal pain, back pain or any other associated symptoms. She is not on blood thinners. PMHx: Hypertension. Recent UTI admitted 10/06/2024. Past surgical history tubal Ligation. Allergies to Tylenol and penicillins, both cause hives. Social Hx: No tobacco, alcohol, or substance use. Lives with family. PCP is at [place] Related Data Home Medications ?Medication ?Instructions ?Recorded ?Confirmed metoprolol succinate 50 mg 50 mg PO BID 10/04/24 10/04/24 tablet,extended release 24 hr Previous Rx's ?Medication ?Instructions ?Recorded ibuprofen 600 mg tablet 600 mg PO Q6H PRN pain #30 tabs 12/11/20 ferric citrate 210 mg iron tablet 210 mg PO QDAY 1 month #30 tabs 10/06/24 Allergies Allergy/AdvReac Type Severity Reaction Status Date / Time acetaminophen (From Tylenol) Allergy Severe Hives Verified 10/04/24 13:43 Penicillins Allergy Severe RASH,HIVES Verified 10/04/24 13:43 Review of Systems Review of Systems Systems Reviewed: All systems reviewed, normal except as documented Past Medical History Past Medical History CARDIAC: Positive Hypertension; Negative Congestive Heart Failure RESPIRATORY: Negative Chronic Obstructive Pulmonary Disease (COPD) GENITOURINARY: Negative Renal Disease ENDOCRINE: Negative Diabetes Mellitus Type 1 or Diabetes Mellitus Type 2 OTHER HISTORY: Positive Anesthesia Reactions; Negative Blood Transfusions or Cancer Surgical History SURGICAL: Positive Tubal Ligation Social History SMOKING STATUS: Never smoker SUBSTANCE USE: does not use ED Exam General Limitations: Present no limitations General appearance: Present alert and in no apparent distress Head Head exam: Present other (contusion to the back of her head) Eye Eye exam: Present normal appearance, PERRL and EOMI ENT ENT exam: Present normal oropharynx, mucous membranes moist and other (redness to the left cheek without any tenderness) Neck Neck exam: Present normal inspection, full ROM and trachea midline Chest Chest inspection: Present normal inspection and symmetric chest wall rise Respiratory Respiratory exam: Present normal lung sounds bilaterally Cardiovascular Cardiovascular exam: Present regular rate, normal rhythm and normal heart sounds Abdominal Exam Abdominal exam: Present soft and normal bowel sounds Extremities Exam Extremities exam: Present full ROM and other (mild tenderness to the RLE, FROM of bilateral hips, no shortening, no deformities) Back Exam Back exam: Present normal inspection and full ROM Neurological Exam Neurological exam: Present alert, oriented X3 and CN II-XII intact Psychiatric Psychiatric exam: Present normal affect and normal mood Skin Skin exam: Present warm, dry, intact and normal color Course Course Course Narrative: 2118: Sepsis alert initiated. Orders made at this time are congruent with ED Adult Sepsis Order List. Re-evaluation is to be completed. CXR is ordered for determining the etiology of fever. 2142: NS IVF started. 2319: Sepsis reassessment performed consisting of lab review, vitals, physical exam including auscultation of heart, lungs, and visual evaluation of capillary refills, mucosal membranes and extremities. Quality Measures Possible source: pulmonary and genitourinary Blood cultures ordered: yes Antibiotic ordered: Yes Pertinent labs: 10/23/24 21:58 Lactic Acid 2.1 H mMol/L (0.4-2.0) Procalcitonin 0.50 H ng/ml (0.0-0.49) sepsis Orders Category Date Time Status Admit to Inpatient Status Routine Admission 10/24/24 00:31 Active Patient Condition Routine Admission 10/24/24 00:31 Ordered Activity as Tolerated Routine Care 10/24/24 00:32 Ordered Bedside COVID-19 Antigen Test NOW Care 10/23/24 21:25 Active Bedside Influenza A&B Antigen Test NOW Care 10/23/24 21:26 Active Recycle Worker STAT Care 10/23/24 21:29 Active Continuous Pulse Oximetry STAT Care 10/23/24 21:29 Completed EKG (ED ONLY) *Do not use* NOW Care 10/23/24 21:22 Completed In and Out Catheter X1PRN Care 10/23/24 21:29 Completed Insert IV NOW Care 10/23/24 21:29 Active NPO STAT Care 10/23/24 21:29 Active Notify provider NEEDED Care 10/24/24 00:31 Active Strict Intake and Output Routine Care 10/23/24 21:[address] cervical spine wo con Stat Exams 10/23/24 21:[address] chest abdomen pelvis w con SEPSIS PROTOCOL Stat Exams 10/23/24 22:[address] head/brain wo con Stat Exams 10/23/24 21:36 Completed EKG (ED Only) Stat Exams 10/23/24 21:22 Draft XR chest 1V SEPSIS PROTOCOL Stat Exams 10/23/24 21:31 Completed XR femur RT 2V Stat Exams 10/23/24 21:41 Completed XR hip RT w pelvis 2-3V Stat Exams 10/23/24 21:41 Completed B-Type Natriuretic Peptide Stat Lab 10/23/24 21:58 Completed Basic Metabolic Panel AM DRAW Lab 10/24/24 05:00 Ordered Basic Metabolic Panel AM DRAW Lab 10/25/24 05:00 Ordered Basic Metabolic Panel AM DRAW Lab 10/26/24 05:00 Ordered Blood Culture (Lab) Stat Lab 10/23/24 21:53 Received CBC AM DRAW Lab 10/24/24 05:00 Ordered CBC AM DRAW Lab 10/25/24 05:00 Ordered CBC AM DRAW Lab 10/26/24 05:00 Ordered CBC [CBC] Stat Lab 10/23/24 21:58 Completed CMP [Comprehensive Metabolic Panel] Stat Lab 10/23/24 21:58 Completed LDH (Lactate Dehydrogenase) Stat Lab 10/23/24 21:58 Completed Lactate (Lactic Acid) Stat Lab 10/23/24 21:58 Results Lipase Stat Lab 10/23/24 21:58 Completed Magnesium Stat Lab 10/23/24 21:58 Completed Partial Thromboplastin Time Stat Lab 10/23/24 21:58 Completed Phosphorous Stat Lab 10/23/24 21:58 Completed Procalcitonin Stat Lab 10/23/24 21:58 Completed Prothrombin Time with INR Stat Lab 10/23/24 21:58 Completed Troponin I Stat Lab 10/23/24 21:58 Completed Urinalysis Stat Lab 10/23/24 21:30 Completed Urinalysis Stat Lab 10/23/24 21:30 Completed Urine Culture Stat Lab 10/23/24 21:29 Ordered Heparin Inj Med 10/24/24 06:00 Ordered 5,000 unit SC Q8HR Ibuprofen Tab [Motrin Tab] Med 10/24/24 00:32 Ordered 400 mg PO Q6HR PRN Ketorolac Inj [Toradol Inj] Med 10/23/24 21:36 Discontinued 15 mg IM X1 ONE Ketorolac Inj [Toradol Inj] Med 10/23/24 21:50 Discontinued 15 mg IVP X1 ONE Ketorolac Inj [Toradol Inj] Med 10/23/24 21:50 Discontinued 30 mg IVP X1 ONE Sodium Chloride 0.9% 1000 ml [Ns] 1,000 ml Med 10/24/24 00:45 Ordered IV 75 mls/hr Sodium Chloride 0.9% 1000 ml [Ns] 1,365 ml Med 10/23/24 21:29 Discontinued IV 1,365 mls/hr Code Status Routine Oth 10/24/24 00:31 Ordered Vital Signs Vital signs: Vital Signs Temperature 98.2 F 10/23/24 21:09 Pulse Rate 134 H 10/23/24 21:09 Respiratory Rate 20 10/23/24 21:09 Blood Pressure 116/90 H 10/23/24 21:09 Pulse Oximetry (%) 95 10/23/24 21:09 Oxygen Delivery Method Room Air 10/23/24 21:09 Fall [facility] Narrative MDM Narrative:: Scribe Attestation: 10/23/24 Jesica Dan, brigitte scribing for and in the presence of Dr. Tesfaye. PMHx: Hypertension. Recent UTI admitted 10/06/2024. Past surgical history tubal Ligation. Allergies to Tylenol and penicillins, both cause hives. Social Hx: No tobacco, alcohol, or substance use. Lives with family. EDC: -VS SIRS: Pulse of 134, temperature 103. Sepsis orders concurrent with ED sepsis order set. Patient otherwise has a contusion on the back of her head but no open lacerations. -Presents with unwitnessed ground-level fall, patient with history of recent UTI treatment with Cipro. - Patient does not report chest pain. Possible arrhythmia is not in the differential. -No abnormal cardiopulmonary findings, neuro exam without any evidence of deficits and has GCS of 14, Neuro and cardio exam completely intact. -EKG without evidence of dysrhythmia. Baseline tachycardia. -Getting basic labs and CT brain/neck -Overall presentation consistent with sepsis and will need to find the source, urine, lung, blood. Lactic acid slightly elevated at 2.1 with Pro-Abelardo 0.5. Urinalysis does not show UTI. However does have rapid period. CT scan is obtained to look for other source as well as secondary to fall complaining of prep and pelvic pain. -Had a shared decision making. CT scan shows Patient data External records reviewed:: [facility] previous records (Per chart review, patient was admitted here on 10/04/24 for sepsis.) Clinical information provided by:: patient and EMS Social determinants that could affect healthcare access:: none Patient has the following chronic illnesses:: HTN How is presenting disease/condition affected by chronic disease/condition?: uneffected by Evaluation data The following diagnostics were reviewed and interpreted by me:: lab results, radiology exam(s) and EKG tracing(s) Lab and/or radiology exams considered but not ordered:: none Interpretation Summary: CBC is normal, Sodium is 129, Lactic Acid is 2.1, BNP is 204, Procalcitonin is 0.50, UA is unremarkable, according to my interpretation. EKG done at 2123, sinus tachycardia, rate of 125, low voltage, nonspecific ST-T changes in lead III, no STEMI, according to my interpretation. -------- [facility] Report Signed Patient: KEHINDE ORTIZ Record#: [id number] Birthdate: 1940 Age/Sex: 83 / F Location: [facility] Attending Dr: Ordering Physician: Jesusita Jiménez MD Date of Service: 10/23/24 Procedure(s): XR chest 1V SEPSIS PROTOCOL Accession Number(s): [id number] cc: Jose Galo MD; Jesusita Jiménez MD~ Examination: AP chest single view Technique one AP portable upright chest single view Exam date and time: October 23, 2024 2140 hrs. Comparison September 14, 2024 Indications: Hypertension sepsis patient fell today Findings: Normal heart size No pneumothorax No pneumonia Clavicles bones of the shoulders and ribs appear intact Impression: No pneumothorax pulmonary contusion or hemothorax No pneumonia identified Dictated By: Jose Galo MD Signed By: <Electronically signed by Jose Galo MD in OV> 10/23/242150 [facility] Report Signed Patient: KEHINDE ORTIZ. Record#: [id number] Birthdate: 1940 Age/Sex: 83 / F Location: [facility] Attending Dr: Ordering Physician: Jesusita Jiménez MD Date of Service: 10/23/24 Procedure(s): CT cervical spine wo con Accession Number(s): [id number] cc: Jose Galo MD; Jesusita Jiménez MD~ Examination: CT cervical spine without contrast 2-D sagittal reconstructions 2-D coronal reconstructions 3-D reconstructions. Exam date and time:October 23, 2024 at 2147 hrs. Indications: Ground-level fall today with injury to the neck, neck pain CTDI:vol (mGy) 6.99 DLP: (mGycm) 156 Technique: Multiple 2 mm axial sections of the cervical spine have been obtained. The coronal and sagittal reconstructions have been obtained. 3-D reconstructions have been obtained. Low dose protocols were performed. One or more of the following dose reduction techniques were used; automated exposure control, adjustment of the mA and/or KV according to patient size, use of iterative reconstruction technique. Findings: Axial sections demonstrate intact base of the skull. C1 exhibit satisfactory relationship to the odontoid. No acute cervical vertebral body fracture seen. Alignment posterior spinous processes satisfactory. Impression: No acute cervical fracture. Dictated By: Jose Galo MD Signed By: <Electronically signed by Jose Galo MD in OV> 10/23/242248 [facility] Report Signed Patient: KEHINDE ORTIZ. Record#: [id number] Birthdate: 1940 Age/Sex: 83 / F Location: [facility] Attending Dr: Ordering Physician: Jesusita Jiménez MD Date of Service: 10/23/24 Procedure(s): CT head/brain wo con Accession Number(s): [id number] cc: Jose Galo MD; Jesusita Jiménez MD~ Examination: CT brain head without contrast. 2-D sagittal coronal reconstructions Date and time of exam:October 23, 20247 hrs. Indications: Ground-level fall today with injury to the head, head pain CTDI: vol (mGy):7.01 DLP: (mGycm):156 Technique: Multiple CT axial sections of the brain have been obtained, 5 mm slice thickness. Contrast has not been administered. 2-D sagittal, coronal reconstructions have been obtained Low dose protocols were performed. One or more of the following dose reduction techniques were used; automated exposure control, adjustment of the mA and/or KV according to patient size, use of iterative reconstruction technique. Findings: No significant ventricular enlargement. 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 No mass effect or midline shift Basal cisterns are not remarkable. Fourth ventricle is midline. Cranial vault intact. Impression: Negative for acute hemorrhage, mass effect or midline shift Dictated By: Jose Galo MD Signed By: <Electronically signed by Jose Galo MD in OV> 10/23/247 [facility] Report Signed Patient: KEHINDE ORTIZ Record#: [id number] Birthdate: 1940 Age/Sex: 83 / F Location: [facility] Attending Dr: Ordering Physician: Jseusita Jiménez MD Date of Service: 10/23/24 Procedure(s): XR femur RT 2V Accession Number(s): [id number] cc: Jose Galo MD; Jesusita Jiménez MD~ Examination: Right femur 2 views Technique one AP lateral right femur 2 views Exam date and time: October 23, 2024 2143 hrs. Indications: Patient fell today with injury of the femur, femur pain. Findings: No hip fracture or dislocation Shaft of the femur intact Impression: No acute femur fracture Dictated By: Jose Galo MD Signed By: <Electronically signed by Jose Galo MD in OV> 10/23/24 2243 Medications / Prescriptions Medications or Prescriptions considered but not ordered:: none Medication administrations:: Medication Administration History Heparin Sodium (Porcine) (Heparin Sod Inj 5000 Unit/Ml Vial) 5,000 unit SC Q8HR [facility] Stop: 11/07/24 05:59 Sodium Chloride (Ns) 1,000 mls @ 75 mls/hr IV .[id number] [facility] Stop: 11/23/24 00:44 Ibuprofen (Ibuprofen Tab 400 Mg Tablet) 400 mg PO Q6HR PRN PRN Reason: PAIN OR FEVER > 101 Stop: 11/23/24 00:31 Discontinued Medications Sodium Chloride (Ns) 1,365 mls @ 1,365 mls/hr 30 ml/kg infuse over 60 min (1365 ml) IV .Q1H ONE Stop: 10/23/24 22:28 Last Admin: 10/23/24 21:43 Dose: 1,365 mls/hr Documented By: ESTEBAN Ketorolac Tromethamine (Ketorolac Inj 60 Mg/2 Ml Vial) 15 mg IM X1 ONE Stop: 10/23/24 21:37 Last Admin: 10/23/24 21:52 Dose: Not Given Documented By: ESTEBAN Non-Admin Reason: Discontinued Ketorolac Tromethamine (Ketorolac Inj 30 Mg/Ml Vial) 30 mg IVP X1 ONE Stop: 10/23/24 21:51 Ketorolac Tromethamine (Ketorolac Inj 30 Mg/Ml Vial) 15 mg IVP X1 ONE Stop: 10/23/24 21:51 Last Admin: 10/23/24 21:55 Dose: 15 mg Documented By: ESTEBAN see above Consultations Consultation(s) initiated? (list below): Yes Consultation #1 (Physician, Specialty, Details): Discussed case with Dr. Wise from Hospitalist service regarding admission. Discussed patients ED course, exam findings, labs, and radiology results. The Hospitalist [agrees] to accept the patient for admission. Time: 00:25 Diagnosis Fall Differential Diagnosis: other (sepsis, arrhythmia, UTI, pneumonia, dehydration, electrolyte abnormality, ICH, fracture, contusion) Most likely diagnosis given after review of the tests above:: see clinical impression below Admission Indicated Admission indicated?: indicated Admission Request Was there a request for admission?: Yes Admission Attestation Admission request attestation: Discussed case with [] from Hospitalist service regarding admission. Discussed patients ED course, exam findings, labs, and radiology results. The Hospitalist [agrees,declines] to accept the patient for admission. Disposition Plan Disposition Plan: Admit Critical Care Time Critical Care Time Critical Care Time: Yes Total Critical Care Time (min.): 45 Attestation: The high probability of sudden, clinically significant deterioration in the patient?s condition required the highest level of my preparedness to intervene urgently. The services I provided to this patient were to treat and/or prevent clinically significant deterioration. Services included the following: chart data review, reviewing nursing notes and/or old charts, documentation time, mergers and acquisitions consultant collaboration regarding findings and treatment options, medication orders and management, direct patient care, vital sign assessments and ordering, interpreting and reviewing diagnostic studies and lab tests. Aggregate critical care time includes only time during which I was engaged in work directly related to the patient?s care, as described above, whether at bedside or elsewhere in the Emergency Department. It did not include time spent performing other reported procedures or the services of residents, students, nurses or physician assistants. Discharge Plan Plan Patient Disposition: Admit Acute Care w/in Hospital Patient condition on transfer: Stable Prescriptions/Referrals Prescriptions/Med Rec: No Action ibuprofen 600 mg tablet 600 mg PO Q6H PRN (Reason: pain) Qty: 30 0RF metoprolol succinate 50 mg tablet extended release 24 hr 50 mg PO BID Patient Comments: take 1 tablet by mouth twice a day ferric citrate 210 mg iron tablet 210 mg PO QDAY 30 Days Qty: 30 0RF Rx Instructions: administer with a meal Referrals: No Primary/Family,Physician [Primary Care Provider] - In 1 week Problem List Clinical Impression: Sepsis, Community acquired pneumonia, Ground-level fall, Anemia, chronic disease, Acute hyponatremia Patient/Caregiver Discharge Instructions Print Language: Italian Stand Alone Forms: [facility] Award Info., Patient Portal Info Letter
[2024-10-23 21:18] VITALS: TEMP 39.4
--- NOTE | 2024-10-23 21:22 | EKG_ITS ---
[facility] Test Date: 2024-10-23 Pat Name: KEHINDE ORTIZ Department: Room: - Gender: Female [employer] Work[employer]: : 1940 Requested By: Jesusita Power Order Number: [id number] Reading MD: Jesusita Power Measurements Intervals [place] Rate: 125 P: 60 TX: 156 QRS: 10 QRSD: 77 T: 61 QT: 407 QTc: 588 Interpretive Statements SINUS TACHYCARDIA NONSPECIFIC T-WAVE ABNORMALITY ABNORMAL RHYTHM ECG Compared to ECG 10/04/2024 14:28:48 No significant changes /store/S0/[id number]/ecg/[id number].pdf
[2024-10-23 21:29] VITALS: PULSE 122
--- NOTE | 2024-10-23 21:31 | XR_ITS ---
Examination: AP chest single view Technique one AP portable upright chest single view Exam date and time: October 23, 2024 2140 hrs. Comparison September 14, 2024 Indications: Hypertension sepsis patient fell today Findings: Normal heart size No pneumothorax No pneumonia Clavicles bones of the shoulders and ribs appear intact Impression: No pneumothorax pulmonary contusion or hemothorax No pneumonia identified
--- NOTE | 2024-10-23 21:36 | XR_ITS ---
Examination: CT cervical spine without contrast 2-D sagittal reconstructions 2-D coronal reconstructions 3-D reconstructions. Exam date and time:October 23, 2024 at 2147 hrs. Indications: Ground-level fall today with injury to the neck, neck pain CTDI:vol (mGy) 6.99 DLP: (mGycm) 156 Technique: Multiple 2 mm axial sections of the cervical spine have been obtained. The coronal and sagittal reconstructions have been obtained. 3-D reconstructions have been obtained. Low dose protocols were performed. One or more of the following dose reduction techniques were used; automated exposure control, adjustment of the mA and/or KV according to patient size, use of iterative reconstruction technique. Findings: Axial sections demonstrate intact base of the skull. C1 exhibit satisfactory relationship to the odontoid. No acute cervical vertebral body fracture seen. Alignment posterior spinous processes satisfactory. Impression: No acute cervical fracture.
--- NOTE | 2024-10-23 21:36 | XR_ITS ---
Examination: CT brain head without contrast. 2-D sagittal coronal reconstructions Date and time of exam:October 23, 2024 2127 hrs. Indications: Ground-level fall today with injury to the head, head pain CTDI: vol (mGy):7.01 DLP: (mGycm):156 Technique: Multiple CT axial sections of the brain have been obtained, 5 mm slice thickness. Contrast has not been administered. 2-D sagittal, coronal reconstructions have been obtained Low dose protocols were performed. One or more of the following dose reduction techniques were used; automated exposure control, adjustment of the mA and/or KV according to patient size, use of iterative reconstruction technique. Findings: No significant ventricular enlargement. 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 No mass effect or midline shift Basal cisterns are not remarkable. Fourth ventricle is midline. Cranial vault intact. Impression: Negative for acute hemorrhage, mass effect or midline shift
--- NOTE | 2024-10-23 21:41 | XR_ITS ---
Examination:Right hip AP, lateral, AP pelvis 3 views Technique: Hip AP lateral, AP pelvis, 3 views Exam date and time:October 23, 2024 2143 hrs. Patient fell today with injury to the head, head pain Findings: No right hip fracture or dislocation Left hip bones of the pelvis intact Impression: No acute hip or pelvic fracture.
--- NOTE | 2024-10-23 21:41 | XR_ITS ---
Examination: Right femur 2 views Technique one AP lateral right femur 2 views Exam date and time: October 23, 2024 2143 hrs. Indications: Patient fell today with injury of the femur, femur pain. Findings: No hip fracture or dislocation Shaft of the femur intact Impression: No acute femur fracture
[2024-10-23] MEDS: SODIUM CHLORIDE 0.9% 1000 ML 1,365 ML 1365 ML IV (21:43)
[2024-10-23 21:55] VITALS: TEMP 39.4
[2024-10-23] MEDS: KETOROLAC INJ 30 MG/ML VIAL 15 MG IVP (21:55)
[2024-10-23 22:11] LABS: Lactate (Lactic Acid) 2.1 mMol/L (0.4-2.0)
[2024-10-23 22:12] LABS: Basophils % (Auto) 0 % (0-2.5); Eosinophils % (Auto) 1 % (0-10); Hematocrit 25.7 % (36.0-46.0); Immature Granulocytes % (Auto) 2 % (0-0); Lymphocytes # (Auto) 0.4 Thou/mm3 (1.0-4.8); Lymphocytes % (Auto) 7 % (10-50); Mean Corpuscular HGB Conc 31.1 g/dl (31.0-37.0); Mean Corpuscular Hemoglobin 25.2 pg (25.0-35.0); Mean Corpuscular Volume 81 fL (80-100); Monocytes # (Auto) 0.7 Thou/mm3 (0.0-0.8); Monocytes % (Auto) 14 % (0-12); Neutrophils # (Auto) 3.9 Thou/mm3 (1.8-7.7); Neutrophils % (Auto) 77 % (37-80); Nucleated Red Blood Cell % 0 /100 WBC (0); Platelet Count 407 Thou/mm3 (140-440); RDW Standard Deviation 45.8 fL (36.4-46.3); Red Blood Count 3.18 Miln/mm3 (4.00-5.20)
[2024-10-23 22:22] LABS: Collection Type, Urine Catheter; Collection Type, Urine Clean Catch; Squamous Epithelial Cell,Urine 0 /hpf (0-5)
[2024-10-23 22:31] LABS: Bacteria,Urine Rare; Bilirubin,Urine Negative (Negative); Blood,Urine Negative (Negative); Clarity,Urine Clear (Clear/Hazy); Color,Urine Yellow (Lt Yel-Yel); Glucose, Urine Negative (Negative); Hyaline Casts,Urine < 1 /hpf (0-1); Ketones,Urine Negative (Negative); Leukocyte Esterase,Urine Negative (Negative); Nitrite,Urine Negative (Negative); Protein,Urine 1+ (Neg - Trace); RBC,Urine 2 /hpf (0-3); Specific Gravity,Urine 1.022 (1.001-1.035); WBC,Urine 1 /hpf (0-5)
[2024-10-23 22:33] LABS: INR 1.2 (0.9-1.3); Partial Thromboplastin Time 33.1 Seconds (22.0-36.0); Prothrombin Time 13.1 Seconds (9.0-12.2)
--- NOTE | 2024-10-23 22:33 | XR_ITS ---
Examination: CT chest with intravenous contrast CT abdomen with intravenous contrast CT pelvis with intravenous contrast 2-D coronal and sagittal reconstructions Time of exam: October 23, 2024 1059 hrs. Indications: Sepsis alert CTDI: vol (mGy) : 7.59 DLP: (mGycm): 502 Technique: Multiple axial images of the chest, abdomen and pelvis with intravenous contrast, 3.0 mm slice thickness. Images obtained post intravenous injection Isovue 370 60 cc Isovue-370 c 2-D sagittal and coronal reconstructions. Low dose protocols were performed. One or more of the following dose reduction techniques were used; automated exposure control, adjustment of the mA and/or KV according to patient size, use of iterative reconstruction technique. Findings: No thoracic aortic aneurysmal dilatation Precarinal lymph nodes Pulmonary artery segments are not enlarged No pulmonary artery emboli Mild to moderate enlargement left atrium left ventricle Pneumonia in the right upper lobe and both bases No focal liver or splenic lesions Cholelithiasis No extrahepatic biliary tract dilatation Small lymph nodes adjacent to the distal aorta in the chest and upper aorta in the abdomen No bowel obstruction No hydronephrosis Normal appendix Diffuse lumbar degenerative disc disease Impression: Pneumonia in the right upper lobe and both bases Cholelithiasis No extrahepatic biliary tract dilatation Mediastinal and upper abdominal lymphadenopathy
[2024-10-23 22:39] LABS: B-Type Natriuretic Peptide 204 pg/mL (0-100)
[2024-10-23 22:47] LABS: Alanine Aminotransferase 40 U/L (10-49); Albumin, Serum 2.4 gm/dL (3.4-4.8); Albumin/Globulin Ratio 0.5 (1.2-2.2); Alkaline Phosphatase 118 U/L (46-116); Anion Gap 9 (7-16); Aspartate Amino Transferase 54 U/L (0-34); BUN/Creatinine Ratio 24 Ratio (12-20); Bilirubin,Total 0.8 mg/dL (0.3-1.2); Blood Urea Nitrogen 19 mg/dL (9-23); Calcium 8.3 mg/dL (8.3-10.6); Calcium (Corrected) 9.6 mg/dL (8.5-10.1); Carbon Dioxide 23.4 mMol/L (20.0-31.0); Chloride 97 mMol/L (98-107); Creatinine (Component) 0.8 mg/dL (0.6-1.3); Estimated Creatinine Clearance 36.9 mL/min (>60); Globulin 4.6 gm/dL (2.3-3.5); Glucose 93 mg/dL (74-106); Lipase 21 U/L (12-53); Magnesium 1.6 mg/dL (1.6-2.6); Osmolality,Calculated 261 (275-295); Sodium 129 mMol/L (136-145); Troponin I < 0.020 ng/mL (0.0-0.045); eGFR > 60 See Note
[2024-10-23 22:59] LABS: LDH (Lactate Dehydrogenase) 638 U/L (120-246)
[2024-10-23 23:05] LABS: Bacteria,Urine Rare; Bilirubin,Urine Negative (Negative); Blood,Urine Negative (Negative); Clarity,Urine Clear (Clear/Hazy); Color,Urine Yellow (Lt Yel-Yel); Glucose, Urine Negative (Negative); Hyaline Casts,Urine < 1 /hpf (0-1); Ketones,Urine Negative (Negative); Leukocyte Esterase,Urine Negative (Negative); Nitrite,Urine Negative (Negative); Protein,Urine 1+ (Neg - Trace); RBC,Urine 2 /hpf (0-3); Specific Gravity,Urine 1.022 (1.001-1.035); WBC,Urine 1 /hpf (0-5)
[2024-10-23 23:49] VITALS: TEMP 36.9
--- NOTE | 2024-10-23 23:55 | PRELIM_ITS ---
ORIGINAL REPORT CT scan of the chest, abdomen and pelvis with intravenous contrast (axial sections with sagittal and coronal reformats) October 23, 2024 2250 hours Clinical History: 83 yo with sepsis, recent UTI Comparison: None. Findings: Small consolidations in the right upper lobe and bilateral lower lobes. No pneumothorax. Trace of bilateral pleural effusions. The aorta is unremarkable without evidence of dissection or aneurysm. No evidence of mediastinal mass or lymphadenopathy. There is no pericardial effusion. The liver, spleen, pancreas, adrenals and kidneys are unremarkable. Gallstones without CT evidence of acute cholecystitis. No biliary duct dilation. Enlarged lymph nodes peripheral to the distal esophagus and lesser gastric curvature. No evidence of bowel obstruction. The appendix is within normal limits. The urinary bladder is unremarkable. There is no free fluid or air. Degenerative changes of the imaged portions of the spine. Chronic multilevel disc disease. No acute fractures. Vascular calcifications. Dilated left atrium. The uterus and ovaries are within normal limits. Impression: 1. Small consolidations in the lungs, suspicious for multifocal pneumonia. 2. Dilated left atrium. 3. Trace bilateral pleural effusions. 4. Enlarged lymph nodes peripheral to the distal esophagus and lesser gastric curvature. Further evaluation to exclude distal esophageal and gastric cancer is recommended. Report Electronically Signed By: Matt Brantley 10/23/2024 11:55:37 PM [EST] ADDENDUM REPORT Left axilla lymphadenopathy, the largest lymph node measures 5.1 x 3.1 cm, consider lymphoma in the differential diagnosis. Report Electronically Signed By: Matt Brantley 10/24/2024 1:47:18 AM [EST]
[2024-10-24] VITALS (8 sets, daily range): BP systolic 101–167; BP diastolic 52–90; PULSE 66–108; RESP 15–21; TEMP 35.5–36.6; O2SAT 96–98; BMI 23.7; BMI 23.6
--- NOTE | 2024-10-24 00:25 | EVENTNT_ITS ---
Documentation for date of: 10/24/24 Event Note Event Note: An 83-year-old female presented to the ER with the chief complaint of a ground- level fall. The patient reported falling at home while attempting to get up in a dark room. She was found shortly thereafter by a family member, alert and awake, without evidence of loss of consciousness. She endorsed back of head pain and right lower extremity pain. Family noted she had been weak and persistently cold since a hospital discharge approximately two weeks prior for a UTI. The patient also had poor oral intake and reduced appetite since that time, with slight improvement in alertness and intake noted the day before this presentation. She denied cough, shortness of breath, chest pain, abdominal pain, or neck pain. Due to above mention, she was brought to ER. The patient has a history of HTN. She takes metoprolol. She was recently hospitalized approximately two weeks ago for a UTI. Functionally, the patient was previously independent, ambulating with a walker. In the ER, vital signs recorded as temp 103?F, HR 134 bpm, RR 20, BP 116/90 mmHg. Labs revealed WBC 5, Hb 8, PLT 407, Na 129, K 4.0, Cl 97, BUN 24, Cr 0.8, lactic acid 2.1, BNP 204, albumin 2.4, procalcitonin 0.5. Head CT showed no acute hemorrhage, mass effect, or midline shift. Cervical spine CT showed no fracture. X-rays showed no acute hip, pelvic, or femur fracture. Chest CT revealed small lung consolidations consistent with multifocal pneumonia, dilated left atrium, trace bilateral pleural effusions, and enlarged lymph nodes near the distal esophagus and gastric curvature with recommendation for further evaluation to exclude malignancy. The patient is going to be admitted for further treatment.
--- NOTE | 2024-10-24 00:42 | ESHP_ITS ---
<Statement entered by Bowen Schwartz MD - 10/24/24 01:25> This 83-year-old female with past medical history of hypertension, iron deficiency anemia presenting to the ED on 10/23/2024 after she sustained a ground-level fall. Patient's daughter bedside provided some history as the patient is somewhat frail and speaks slowly. She was managed for UTI on antibiotic and was recently discharged. In the ED, patient was mildly hypertensive, tachycardic and afebrile saturating 95% on room air. CT chest abdomen pelvis showed multifocal pneumonia and bilateral pleural effusion. Patient is admitted for community-acquired pneumonia and started on IV antibiotics therapy. Will continue with IV ceftriaxone and azithromycin. Follow-up on blood cultures and MRSA screen. Refer to registered dietitian for poor oral intake. All labs and orders were reviewed. I saw and examined the patient, and I agree with current management stated by Dr Jeffry MD,PGY1. Plan of care was discussed with the attending physician and resident physician. Disclaimer: Despite multiple revisions, due to the dictation software being used, the document bellow may not be free of grammatical errors including phonetic/typographic errors. However, this does not deter from our commitment to providing health care in the patient's best interest in mind. Dr. Lana MD, PGY 2 Documentation for date of: 10/24/24 HPI History of Present Illness Chief complaint: Weakness, ground-level fall History of present illness: 83-year-old female with past medical history of hypertension, iron deficiency anemia presenting to the ED on 10/23/2024 after she sustained a ground-level fall. Patient's daughter bedside provided some history as the patient is somewhat frail and speaks slowly. Patient's daughter states that the patient was attempting to get out of her bed when she tripped and fell but did not hit her head. Patient explains that the room was dark and she had difficulty finding her footing. Of note, patient was recently discharged in the hospital for urinary tract infection requiring IV antibiotics. Patient's daughter states that since being discharged patient had been chronically sitting and appeared weak but apparently in the last couple days was becoming more alert and active. Patient was recently seen by her PCP who checked a urine and prescribed antibiotics for asymptomatic bacteriuria. Patient denies having any concerning symptoms such as shortness of breath, chest pain, abdominal pain, vomiting/diarrhea, dysuria, hematuria, melena or hematochezia. Patient ambulates using a walker but has generally felt weaker and states that she has felt cold several days before coming to the emergency room. Past medical history: Hypertension, iron deficiency anemia Past surgical history: Unavailable at this time Allergies: Tylenol causes hives, penicillin causes rash/hives Medications: Pending official med rec Family history: Noncontributory Social history: Patient lives in [place] with daughter, denies any alcohol, tobacco or illicit drug use ROS: All 12 systems assessed and the patient denies unless otherwise stated in HPI In the ED, patient presented mildly hypertensive 160/90, heart rate of 134, respiratory rate of 20, afebrile satting 95 on room air. Pertinent lab findings include WBC of 5.0, hemoglobin 8.0, MCV of 81, sodium 129, chloride 97, creatinine 0.8, lactic acid 2.1, magnesium 1.6, AST 54, ALT 40, alk phos 118, lactate dehydrogenase 638, troponin less than 0.020, albumin 2.4, Pro-Abelardo 0.50. Urinalysis was negative for any signs of infection. EKG showed sinus tachycardia with no concerning ST changes. Chest x-ray showed no acute process, CT of the spine was negative, head CT was negative for any acute process, femur x-ray was negative for any fracture, hip x-ray was also negative. CT chest abdomen pelvis showed small consolidations in the lungs, suspicious for multifocal pneumonia, dilated left atrium, trace bilateral pleural effusions and enlarged lymph nodes distal esophagus and lesser gastric curvature. Patient will be admitted for community-acquired pneumonia and started on IV antibiotics, dietitian referral for poor appetite and poor p.o. intake, workup for anemia and enlarged lymph nodes. Exam Vital Signs Temp Pulse Resp BP Pulse Ox O2 Del Method 98.5 F 122 H 20 116/90 H 95 Room Air 10/23/24 23:49 10/23/24 21:29 10/23/24 21:09 10/23/24 21:09 10/23/24 21:09 10/23/24 21:09 Narrative Exam Physical Exam: GENERAL: Awake, answering questions appropriately in Slovenian but slowly, appears frail. HEENT: NC/AT. Moist mucosa. PERRLA/EOMI. Conjunctival pallor noted. No supraclavicular or anterior cervical lymph nodes palpated. CARDIO: Heart RRR, no obvious murmurs, no JVD. PULM: No coughing or visible SOB. Lungs CTA B/L. GI: Abdomen soft, NT/ND, +BS. SKIN/MSK/EXT: No wounds/discoloration/rashes/edema/amputations. +Pedal pulses present B/L. NEURO: Oriented x3, Moves extremities x4, no focial neurological deficits Results: Labs 10/23/24 21:58 10/23/24 21:58 Labs: Short CBC 10/23/24 Range/Units 21:58 WBC 5.0 (3.6-11.0) Thou/mm3 Hgb 8.0 L (12.0-16.0) g/dL Hct 25.7 L (36.0-46.0) % Plt Count 407 D (140-440) Thou/mm3 BMP 10/23/24 21:58 Sodium 129 L Potassium 4.0 Chloride 97 L Carbon Dioxide 23.4 BUN 19 Creatinine 0.8 Glucose 93 Calcium 8.3 Cardiac Enzymes 10/23/24 Range/Units 21:58 Troponin I < 0.020 (0.0-0.045) ng/mL Liver Function 10/23/24 Range/Units 21:58 Total Bilirubin 0.8 (0.3-1.2) mg/dL AST 54 H (0-34) U/L ALT 40 (10-49) U/L Alkaline Phosphatase 118 H (46-116) U/L Albumin 2.4 L (3.4-4.8) gm/dL Urine 10/23/24 10/23/24 10/23/24 Range/Units 21:30 21:30 21:30 Urine Color Yellow Yellow (Lt Yel-Yel) Urine Clarity Clear Clear (Clear/Hazy) Urine pH 6.0 (5.0-7.0) Ur Specific [place] (1.001-1.035) Urine Protein (Neg - Trace) Urine Glucose (UA) (Negative) 10/23/24 10/23/24 10/23/24 Range/Units 21:30 21:30 21:30 Urine Color (Lt Yel-Yel) Urine Clarity (Clear/Hazy) Urine pH 6.0 (5.0-7.0) Ur Specific [place] 1.022 1.022 (1.001-1.035) Urine Protein 1+ A 1+ A (Neg - Trace) Urine Glucose (UA) Negative (Negative) 10/23/24 Range/Units 21:30 Urine Color (Lt Yel-Yel) Urine Clarity (Clear/Hazy) Urine pH (5.0-7.0) Ur Specific [place] (1.001-1.035) Urine Protein (Neg - Trace) Urine Glucose (UA) Negative (Negative) Quality Measures Quality Measures sepsis Current suspected stage: ruled out Possible source: pulmonary and genitourinary Blood cultures ordered: yes Antibiotic ordered: Yes Advance care planning discussed with:: patient and child Medications Home Medications and Allergies Home Medications ?Medication ?Instructions ?Recorded ?Confirmed ?Type metoprolol succinate 50 mg 50 mg PO BID 10/04/2410/24 History tablet,extended release 24 hr Allergies Allergy/AdvReac Type Severity Reaction Status Date / Time acetaminophen (From Tylenol) Allergy Severe Hives Verified 10/04/24 13:43 Penicillins Allergy Severe RASH,HIVES Verified 10/04/24 13:43 Visit Medications Heparin Sodium (Porcine) (Heparin Sod Inj 5000 Unit/Ml Vial) 5,000 unit SC Q8HR MAGGIE Stop: 11/07/24 05:59 Sodium Chloride (Ns) 1,000 mls @ 75 mls/hr IV .[id number] MAGGIE Stop: 11/23/24 00:44 Ceftriaxone Sodium/Dextrose (Rocephin/D5w 1gm Iv Premix) 50 mls @ 100 mls/hr IV QDAY MAGGIE Stop: 10/31/24 00:36 Azithromycin 500 mg/ Sodium (Chloride) 250 mls @ 250 mls/hr IV QDAY MAGGIE Stop: 10/31/24 00:36 Sodium Phosphate 15 mmol/ (Sodium Chloride) 255 mls @ 62.5 mls/hr IV X1 ONE Stop: 10/24/24 04:41 Ceftriaxone Sodium/Dextrose (Rocephin/D5w 1gm Iv Premix) 1 gm in 50 mls @ 100 mls/hr IV X1 ONE Stop: 10/24/24 01:14 Azithromycin 500 mg/ Sodium (Chloride) 250 mls @ 250 mls/hr IV X1 ONE Stop: 10/24/24 01:44 Ibuprofen (Ibuprofen Tab 400 Mg Tablet) 400 mg PO Q6HR PRN PRN Reason: PAIN OR FEVER > 101 Stop: 11/23/24 00:31 Discontinued Medications Sodium Chloride (Ns) 1,365 mls @ 1,365 mls/hr 30 ml/kg infuse over 60 min (1365 ml) IV .Q1H ONE Stop: 10/23/24 22:28 Last Infusion: 10/24/24 00:38 Dose: Infused Ketorolac Tromethamine (Ketorolac Inj 60 Mg/2 Ml Vial) 15 mg IM X1 ONE Stop: 10/23/24 21:37 Last Admin: 10/23/24 21:52 Dose: Not Given Ketorolac Tromethamine (Ketorolac Inj 30 Mg/Ml Vial) 30 mg IVP X1 ONE Stop: 10/23/24 21:51 Ketorolac Tromethamine (Ketorolac Inj 30 Mg/Ml Vial) 15 mg IVP X1 ONE Stop: 10/23/24 21:51 Last Admin: 10/23/24 21:55 Dose: 15 mg Assessment & Plan Plan 83-year-old female with past medical history of hypertension, iron deficiency anemia presenting to the ED after she sustained a ground-level fall will be admitted for community-acquired pneumonia and started on IV antibiotics, dietitian referral for poor appetite and poor p.o. intake, workup for anemia and enlarged lymph nodes. #Community-acquired pneumonia Patient presented with failure to thrive picture and per HPI above, daughter states that she has been very weak and bedbound/couch bound In the ED, sepsis alert was initiated for this patient as she had heart rate of 134, tachypneic with respiratory rate of 20 On exam, patient denies any shortness of breath and is saturating 98 on room air Chest x-ray did not show any active signs of pneumonia But CT chest abdomen/pelvis was ordered by ED which showed small consolidations in the lungs, suspicious for multifocal pneumonia WBC of 5.0, BNP of 204, Pro-Abelardo 0.50 Plan: IV ceftriaxone 1 g daily IV azithromycin 500 mg Blood cultures ordered Supplemental oxygen as needed #Ground-Level Fall As per HPI, patient had a ground-level fall while trying to ambulate out of her bed in the dark Patient's daughter denies that the patient ever hit her head and history taken from patient states that she just tripped while getting out of the bed Patient denies any generalized pain at this time Head CT was negative for any acute process, femur x-ray was negative for any fracture, hip x-ray was also negative Plan: Monitor for any changes in mental status Physical therapy ordered #Likely iron deficiency anemia Patient presenting with hemoglobin of 8.0 and MCV of 81 From prior admission patient was worked up with iron panel which showed iron deficiency anemia along with reticulocyte count which was at normal baseline Currently, the patient's LDH is elevated at 638 Patient does not have any signs of hemolytic anemia such as jaundice (Tbili wnl), thrombosis or bleeding Plan: Peripheral blood smear ordered Patient could potentially benefit from IV iron therapy while in the hospital #Enlarged esophageal and gastric lymph nodes As noted on CT, enlarged lymph nodes distal esophagus and lesser gastric curvature - preliminary read Plan: Consider obtaining oncology referral versus outpatient follow-up with PCP #Poor p.o. 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 Wise and senior resident Dr. Lana Melchor, PGY-1 Attending Provider Attestation/Addendum Pt was evaluated and plan formulated together with the housestaff team. I have reviewed the residents note above and agree with most of its content. Please refer to the residents note for additional details.
[2024-10-24 01:04] LABS: Reflex Lactate? Y
[2024-10-24] MEDS: cefTRIAXone/D5w 1gm IV premix 1 GM/50 ML BAG IV ×2 (01:12→20:20)
[2024-10-24] MEDS: SODIUM CHLORIDE 0.9% 1000 ML 1,000 ML 75 ML IV ×2 (01:12→15:10)
[2024-10-24] MEDS: AZITHROMYCIN INJ 500 MG in SODIUM CHLORIDE 0.9% 250 ML 250 ML 250 MG IV ×2 (01:39→20:31)
[2024-10-24] MEDS: ONDANSETRON INJ 2 MG/ML INJ 2 ML 4 MG IV (02:15)
[2024-10-24] MEDS: NAPH,KPH MBDB 1 PACKET (1.5 GM) PO (02:31)
[2024-10-24] MEDS: Magnesium Sulfate 4 GM Ivpb 4 GM/50 ML BAG IV (05:26)
[2024-10-24] MEDS: HEPARIN SOD INJ 5000 UNIT/ML VIAL SC (05:30)
[2024-10-24 05:32] LABS: Basophils % (Auto) 0 % (0-2.5); Eosinophils % (Auto) 1 % (0-10); Hematocrit 23.6 % (36.0-46.0); Immature Granulocytes % (Auto) 2 % (0-0); Immature Granulocytes Auto 0.08 Thou/mm3 (0.00-0.00); Lymphocytes # (Auto) 0.5 Thou/mm3 (1.0-4.8); Lymphocytes % (Auto) 9 % (10-50); Mean Corpuscular HGB Conc 29.7 g/dl (31.0-37.0); Mean Corpuscular Hemoglobin 25.1 pg (25.0-35.0); Mean Corpuscular Volume 85 fL (80-100); Monocytes # (Auto) 0.9 Thou/mm3 (0.0-0.8); Monocytes % (Auto) 16 % (0-12); Neutrophils % (Auto) 73 % (37-80); Nucleated Red Blood Cell % 0 /100 WBC (0); Platelet Count 340 Thou/mm3 (140-440); RDW Standard Deviation 47.6 fL (36.4-46.3); Red Blood Count 2.79 Miln/mm3 (4.00-5.20); White Blood Count 5.5 Thou/mm3 (3.6-11.0)
[2024-10-24 05:53] LABS: Anion Gap 7 (7-16); BUN/Creatinine Ratio 24 Ratio (12-20); Blood Urea Nitrogen 17 mg/dL (9-23); Calcium 7.4 mg/dL (8.3-10.6); Carbon Dioxide 23.5 mMol/L (20.0-31.0); Chloride 103 mMol/L (98-107); Creatinine (Component) 0.7 mg/dL (0.6-1.3); Estimated Creatinine Clearance 42.2 mL/min (>60); Glucose 96 mg/dL (74-106); Osmolality,Calculated 267 (275-295); Potassium 3.9 mMol/L (3.4-5.1); Sodium 133 mMol/L (136-145); eGFR > 60 See Note
[2024-10-24 09:24] LABS: Creatine Kinase 39 U/L (34-171)
[2024-10-24] MEDS: PANTOPRAZOLE 40 MG TABLET PO (10:51)
[2024-10-24 12:04] LABS: Basophils % (Auto) 0 % (0-2.5); Eosinophils % (Auto) 0 % (0-10); Immature Granulocytes % (Auto) 2 % (0-0); Lymphocytes # (Auto) 0.3 Thou/mm3 (1.0-4.8); Lymphocytes % (Auto) 6 % (10-50); Mean Corpuscular HGB Conc 31.5 g/dl (31.0-37.0); Mean Corpuscular Hemoglobin 25.5 pg (25.0-35.0); Mean Corpuscular Volume 81 fL (80-100); Monocytes # (Auto) 0.6 Thou/mm3 (0.0-0.8); Monocytes % (Auto) 12 % (0-12); Neutrophils # (Auto) 4.1 Thou/mm3 (1.8-7.7); Neutrophils % (Auto) 80 % (37-80); Nucleated Red Blood Cell % 0 /100 WBC (0); Platelet Count 420 Thou/mm3 (140-440); RDW Standard Deviation 45.4 fL (36.4-46.3); Red Blood Count 3.21 Miln/mm3 (4.00-5.20); White Blood Count 5.1 Thou/mm3 (3.6-11.0)
[2024-10-24 12:07] LABS: Hemoglobin 8.2 g/dL (12.0-16.0)
[2024-10-24 12:19] LABS: Iron 8 mcg/dL (50-170); Percent Iron Saturation 6 % (20-55); Total Iron Binding Capacity 117 mcg/dL (250-425); Unsaturated Iron Binding 109 (225-295)
--- NOTE | 2024-10-24 13:33 | PC.NURSE ---
Notified Dr. Loving of pt temp 95.2 rectal, 94.2 oral, and 95.9 axillary. Said he will come see pt
--- NOTE | 2024-10-24 16:08 | ESPR_ITS ---
<Statement entered by Victoriano Ceballos MD - 10/30/24 12:55> I reviewed above note and agree with findings and plans. I have also personally examined the patient with medicine team and went over assessment and plan with medical team including financial intern and resident physician. Documentation for date of: 10/24/24 Subjective Subjective Interval history: No overnight events. Patient seen examined at bedside, resting comfortably. Patient's family is at bedside, stated patient seemed to have improved significantly, was at mental baseline. Patient denies fevers, chills, shortness of breath, cough, fatigue, nausea, vomiting. Warm measures initiated due to low temperature oral and rectal. Continuing IV medications for pneumonia. Exam Vital Signs Temp Pulse Resp BP Pulse Ox O2 Del Method 95.9 F L 71 18 140/79 H 96 Room Air 10/24/24 12:00 10/24/24 12:00 10/24/24 12:00 10/24/24 12:00 10/24/24 12:00 10/24/24 12:00 Narrative Exam PE: Gen: Well-developed and well-nourished. Thin, frail. HEENT: NCAT, PERRLA, EOMI, MMM, anicteric conjunctivae. CVS: normal S1 and S2. RRR. No M/R/G. Resp: CTA B/L. No rhonchi, rales, crackles or wheezing. Abd: soft, non-tender, non-distended. MSK: Good ROM in BUE & BLE. No edema or rash. Neuro: CN II-XII grossly intact. Strength 5/5 in BUE & BLE. Alert and oriented x2, baseline for patient. Psych: appropriate mood and affect. Objective Labs 10/24/24 11:35 10/24/24 04:22 Labs: Laboratory Results - last 24 hr 10/23/24 10/23/24 10/23/24 21:30 21:30 21:30 WBC RBC Hgb Hct MCV MCH MCHC RDW Std Deviation Plt Count Neut % (Auto) Lymph % (Auto) [place] % (Auto) Eos % (Auto) Baso % (Auto) Neut # (Auto) Lymph # (Auto) [place] # (Auto) Eos # (Auto) Baso # (Auto) Immature Gran # (Auto) Absolute Nucleated RBC Immature Gran % Nucleated RBC % PT INR APTT Sodium Potassium Chloride Carbon Dioxide Anion Gap BUN Creatinine Estim Creat Clear Calc eGFR BUN/Creatinine Ratio Glucose Calculated Osmolality Lactic Acid Calcium Corrected Calcium Phosphorus Magnesium Iron TIBC Iron Saturation Unsat Iron Binding Total Bilirubin AST ALT Alkaline Phosphatase Lactate Dehydrogenase Total Creatine Kinase Troponin I B-Natriuretic Peptide Total Protein Albumin Globulin Albumin/Globulin Ratio Lipase Procalcitonin Ur Collection Type Catheter Clean Catch Urine Color Yellow Yellow Urine Clarity Clear Urine pH Ur Specific [place] Urine Protein Urine Glucose (UA) Urine Ketones Urine Blood Urine Nitrite Urine Bilirubin Urine Urobilinogen (Auto) Ur Leukocyte Esterase Urine RBC Urine WBC Ur Squamous Epith Cells Urine Bacteria Hyaline Casts 10/23/24 10/23/24 10/23/24 21:30 21:30 21:30 WBC RBC Hgb Hct MCV MCH MCHC RDW Std Deviation Plt Count Neut % (Auto) Lymph % (Auto) [place] % (Auto) Eos % (Auto) Baso % (Auto) Neut # (Auto) Lymph # (Auto) [place] # (Auto) Eos # (Auto) Baso # (Auto) Immature Gran # (Auto) Absolute Nucleated RBC Immature Gran % Nucleated RBC % PT INR APTT Sodium Potassium Chloride Carbon Dioxide Anion Gap BUN Creatinine Estim Creat Clear Calc eGFR BUN/Creatinine Ratio Glucose Calculated Osmolality Lactic Acid Calcium Corrected Calcium Phosphorus Magnesium Iron TIBC Iron Saturation Unsat Iron Binding Total Bilirubin AST ALT Alkaline Phosphatase Lactate Dehydrogenase Total Creatine Kinase Troponin I B-Natriuretic Peptide Total Protein Albumin Globulin Albumin/Globulin Ratio Lipase Procalcitonin Ur Collection Type Urine Color Urine Clarity Clear Urine pH 6.0 6.0 Ur Specific [place] 1.022 1.022 Urine Protein 1+ A Urine Glucose (UA) Urine Ketones Urine Blood Urine Nitrite Urine Bilirubin Urine Urobilinogen (Auto) Ur Leukocyte Esterase Urine RBC Urine WBC Ur Squamous Epith Cells Urine Bacteria Hyaline Casts 10/23/24 10/23/24 10/23/24 21:30 21:30 21:30 WBC RBC Hgb Hct MCV MCH MCHC RDW Std Deviation Plt Count Neut % (Auto) Lymph % (Auto) [place] % (Auto) Eos % (Auto) Baso % (Auto) Neut # (Auto) Lymph # (Auto) [place] # (Auto) Eos # (Auto) Baso # (Auto) Immature Gran # (Auto) Absolute Nucleated RBC Immature Gran % Nucleated RBC % PT INR APTT Sodium Potassium Chloride Carbon Dioxide Anion Gap BUN Creatinine Estim Creat Clear Calc eGFR BUN/Creatinine Ratio Glucose Calculated Osmolality Lactic Acid Calcium Corrected Calcium Phosphorus Magnesium Iron TIBC Iron Saturation Unsat Iron Binding Total Bilirubin AST ALT Alkaline Phosphatase Lactate Dehydrogenase Total Creatine Kinase Troponin I B-Natriuretic Peptide Total Protein Albumin Globulin Albumin/Globulin Ratio Lipase Procalcitonin Ur Collection Type Urine Color Urine Clarity Urine pH Ur Specific [place] Urine Protein 1+ A Urine Glucose (UA) Negative Negative Urine Ketones Negative Negative Urine Blood Negative Urine Nitrite Urine Bilirubin Urine Urobilinogen (Auto) Ur Leukocyte Esterase Urine RBC Urine WBC Ur Squamous Epith Cells Urine Bacteria Hyaline Casts 10/23/24 10/23/24 10/23/24 21:30 21:30 21:30 WBC RBC Hgb Hct MCV MCH MCHC RDW Std Deviation Plt Count Neut % (Auto) Lymph % (Auto) [place] % (Auto) Eos % (Auto) Baso % (Auto) Neut # (Auto) Lymph # (Auto) [place] # (Auto) Eos # (Auto) Baso # (Auto) Immature Gran # (Auto) Absolute Nucleated RBC Immature Gran % Nucleated RBC % PT INR APTT Sodium Potassium Chloride Carbon Dioxide Anion Gap BUN Creatinine Estim Creat Clear Calc eGFR BUN/Creatinine Ratio Glucose Calculated Osmolality Lactic Acid Calcium Corrected Calcium Phosphorus Magnesium Iron TIBC Iron Saturation Unsat Iron Binding Total Bilirubin AST ALT Alkaline Phosphatase Lactate Dehydrogenase Total Creatine Kinase Troponin I B-Natriuretic Peptide Total Protein Albumin Globulin Albumin/Globulin Ratio Lipase Procalcitonin Ur Collection Type Urine Color Urine Clarity Urine pH Ur Specific [place] Urine Protein Urine Glucose (UA) Urine Ketones Urine Blood Negative Urine Nitrite Negative Negative Urine Bilirubin Negative Negative Urine Urobilinogen (Auto) 8.0 Ur Leukocyte Esterase Urine RBC Urine WBC Ur Squamous Epith Cells Urine Bacteria Hyaline Casts 10/23/24 10/23/24 10/23/24 21:30 21:30 21:30 WBC RBC Hgb Hct MCV MCH MCHC RDW Std Deviation Plt Count Neut % (Auto) Lymph % (Auto) [place] % (Auto) Eos % (Auto) Baso % (Auto) Neut # (Auto) Lymph # (Auto) [place] # (Auto) Eos # (Auto) Baso # (Auto) Immature Gran # (Auto) Absolute Nucleated RBC Immature Gran % Nucleated RBC % PT INR APTT Sodium Potassium Chloride Carbon Dioxide Anion Gap BUN Creatinine Estim Creat Clear Calc eGFR BUN/Creatinine Ratio Glucose Calculated Osmolality Lactic Acid Calcium Corrected Calcium Phosphorus Magnesium Iron TIBC Iron Saturation Unsat Iron Binding Total Bilirubin AST ALT Alkaline Phosphatase Lactate Dehydrogenase Total Creatine Kinase Troponin I B-Natriuretic Peptide Total Protein Albumin Globulin Albumin/Globulin Ratio Lipase Procalcitonin Ur Collection Type Urine Color Urine Clarity Urine pH Ur Specific [place] Urine Protein Urine Glucose (UA) Urine Ketones Urine Blood Urine Nitrite Urine Bilirubin Urine Urobilinogen (Auto) 8.0 Ur Leukocyte Esterase Negative Negative Urine RBC 2 2 Urine WBC 1 Ur Squamous Epith Cells Urine Bacteria Hyaline Casts 10/23/24 10/23/24 10/23/24 21:30 21:30 21:30 WBC RBC Hgb Hct MCV MCH MCHC RDW Std Deviation Plt Count Neut % (Auto) Lymph % (Auto) [place] % (Auto) Eos % (Auto) Baso % (Auto) Neut # (Auto) Lymph # (Auto) [place] # (Auto) Eos # (Auto) Baso # (Auto) Immature Gran # (Auto) Absolute Nucleated RBC Immature Gran % Nucleated RBC % PT INR APTT Sodium Potassium Chloride Carbon Dioxide Anion Gap BUN Creatinine Estim Creat Clear Calc eGFR BUN/Creatinine Ratio Glucose Calculated Osmolality Lactic Acid Calcium Corrected Calcium Phosphorus Magnesium Iron TIBC Iron Saturation Unsat Iron Binding Total Bilirubin AST ALT Alkaline Phosphatase Lactate Dehydrogenase Total Creatine Kinase Troponin I B-Natriuretic Peptide Total Protein Albumin Globulin Albumin/Globulin Ratio Lipase Procalcitonin Ur Collection Type Urine Color Urine Clarity Urine pH Ur Specific [place] Urine Protein Urine Glucose (UA) Urine Ketones Urine Blood Urine Nitrite Urine Bilirubin Urine Urobilinogen (Auto) Ur Leukocyte Esterase Urine RBC Urine WBC 1 Ur Squamous Epith Cells 0 0 Urine Bacteria Rare Rare Hyaline Casts < 1 10/23/24 10/23/24 10/24/24 21:30 21:58 01:26 WBC 5.0 RBC 3.18 L Hgb 8.0 L Hct 25.7 L MCV 81 MCH 25.2 MCHC 31.1 RDW Std Deviation 45.8 Plt Count 407 D Neut % (Auto) 77 Lymph % (Auto) 7 L [place] % (Auto) 14 H Eos % (Auto) 1 Baso % (Auto) 0 Neut # (Auto) 3.9 Lymph # (Auto) 0.4 L [place] # (Auto) 0.7 Eos # (Auto) 0.0 Baso # (Auto) 0.0 Immature Gran # (Auto) 0.10 H Absolute Nucleated RBC 0.00 Immature Gran % 2 H Nucleated RBC % 0 PT 13.1 H INR 1.2 APTT 33.1 Sodium 129 L Potassium 4.0 Chloride 97 L Carbon Dioxide 23.4 Anion Gap 9 BUN 19 Creatinine 0.8 Estim Creat Clear Calc 36.9 L eGFR > 60 BUN/Creatinine Ratio 24 H Glucose 93 Calculated Osmolality 261 L Lactic Acid 2.1 H 1.0 Calcium 8.3 Corrected Calcium 9.6 Phosphorus 2.0 L Magnesium 1.6 Iron TIBC Iron Saturation Unsat Iron Binding Total Bilirubin 0.8 AST 54 H ALT 40 Alkaline Phosphatase 118 H Lactate Dehydrogenase 638 H Total Creatine Kinase Troponin I < 0.020 B-Natriuretic Peptide 204 H Total Protein 7.0 Albumin 2.4 L Globulin 4.6 H Albumin/Globulin Ratio 0.5 L Lipase 21 Procalcitonin 0.50 H Ur Collection Type Urine Color Urine Clarity Urine pH Ur Specific [place] Urine Protein Urine Glucose (UA) Urine Ketones Urine Blood Urine Nitrite Urine Bilirubin Urine Urobilinogen (Auto) Ur Leukocyte Esterase Urine RBC Urine WBC Ur Squamous Epith Cells Urine Bacteria Hyaline Casts < 1 10/24/24 10/24/24 04:22 11:35 WBC 5.5 5.1 RBC 2.79 L 3.21 L Hgb 7.0 L 8.2 L Hct 23.6 L 26.0 L MCV 85 81 MCH 25.1 25.5 MCHC 29.7 L 31.5 RDW Std Deviation 47.6 H 45.4 Plt Count 340 D 420 D Neut % (Auto) 73 80 Lymph % (Auto) 9 L 6 L [place] % (Auto) 16 H 12 Eos % (Auto) 1 0 Baso % (Auto) 0 0 Neut # (Auto) 4.0 4.1 Lymph # (Auto) 0.5 L 0.3 L [place] # (Auto) 0.9 H 0.6 Eos # (Auto) 0.0 0.0 Baso # (Auto) 0.0 0.0 Immature Gran # (Auto) 0.08 H 0.10 H Absolute Nucleated RBC 0.00 0.00 Immature Gran % 2 H 2 H Nucleated RBC % 0 0 PT INR APTT Sodium 133 L Potassium 3.9 Chloride 103 Carbon Dioxide 23.5 Anion Gap 7 BUN 17 Creatinine 0.7 Estim Creat Clear Calc 42.2 L eGFR > 60 BUN/Creatinine Ratio 24 H Glucose 96 Calculated Osmolality 267 L Lactic Acid Calcium 7.4 L Corrected Calcium Phosphorus Magnesium Iron 8 L TIBC 117 L Iron Saturation 6 L Unsat Iron Binding 109 L Total Bilirubin AST ALT Alkaline Phosphatase Lactate Dehydrogenase Total Creatine Kinase 39 Troponin I B-Natriuretic Peptide Total Protein Albumin Globulin Albumin/Globulin Ratio Lipase Procalcitonin Ur Collection Type Urine Color Urine Clarity Urine pH Ur Specific [place] Urine Protein Urine Glucose (UA) Urine Ketones Urine Blood Urine Nitrite Urine Bilirubin Urine Urobilinogen (Auto) Ur Leukocyte Esterase Urine RBC Urine WBC Ur Squamous Epith Cells Urine Bacteria Hyaline Casts Quality Measures Quality Measures sepsis Current suspected stage: sepsis Possible source: pulmonary and genitourinary Blood cultures ordered: yes Antibiotic ordered: Yes Advance care planning discussed with:: patient Assessment & Plan Assessment Current Active Medications: Generic Name Dose Route Start Last Admin Trade Name Freq PRN Reason Stop Dose Admin Sodium Chloride 1,000 mls @ 75 mls/hr 10/24/24 00:45 10/24/24 15:10 Ns IV 11/23/24 00:44 75 mls/hr .[id number] MAGGIE Administration Ceftriaxone Sodium/Dextrose 1 gm in 50 mls @ 100 mls/hr 10/24/24 21:00 Rocephin/D5w 1gm Iv Premix IV 10/31/24 20:59 [id number] MAGGIE Azithromycin 500 mg/ Sodium 250 mls @ 250 mls/hr 10/24/24 21:00 Chloride IV 10/31/24 20:59 2100 MAGGIE Ondansetron HCl 4 mg 10/24/24 02:08 10/24/24 02:15 Ondansetron Inj 2 Mg/Ml Inj 2 Ml IV 11/23/24 02:07 4 mg Q6HR PRN Administration NAUSEA OR VOMITING Protocol Pantoprazole Sodium 40 mg 10/24/24 10:45 10/24/24 10:51 Pantoprazole 40 Mg Tablet PO 11/23/24 10:44 40 mg QDAY MAGGIE Administration Sennosides 1 tab 10/24/24 01:19 Senna Tablet PO 11/23/24 01:18 QDAY PRN CONSTIPATION Protocol Plan 83-year-old female with past medical history of hypertension, iron deficiency anemia presenting to the ED after she sustained a ground-level fall will be admitted for community-acquired pneumonia and started on IV antibiotics, dietitian referral for poor appetite and poor p.o. intake, workup for anemia and enlarged lymph nodes. #Community-acquired pneumonia Patient presented with failure to thrive picture and per HPI above, daughter states that she has been very weak and bedbound/couch bound. In the ED, sepsis alert was initiated for this patient as she had heart rate of 134, tachypneic with respiratory rate of 20. On exam, patient denies any shortness of breath and is saturating 98 on room air. Chest x-ray did not show any active signs of pneumonia, but CT chest abdomen/pelvis was ordered by ED which showed small consolidations in the lungs, suspicious for multifocal pneumonia WBC of 5.0, BNP of 204, Pro-Abelardo 0.50 -IV ceftriaxone 1 g daily -IV azithromycin 500 mg -Blood cultures ordered -Supplemental oxygen as needed #Lymphadenopathy CT noticed enlarged lymph node in the axillary region, largest 5.1 x 3.1 cm. DDx: PNA versus lymphoma. Patient denies night sweats, fevers, weight loss, increased weakness or lethargy. -Recommend outpatient workup once pneumonia has cleared #Ground-Level Fall As per HPI, patient had a ground-level fall while trying to ambulate out of her bed in the dark. Patient's daughter denies that the patient ever hit her head and history taken from patient states that she just tripped while getting out of the bed. Patient denies any generalized pain at this time. Head CT was negative for any acute process, femur x-ray was negative for any fracture, hip x-ray was also negative -Monitor for any changes in mental status -Physical therapy ordered #Likely iron deficiency anemia Patient presenting with hemoglobin of 8.0 and MCV of 81. From prior admission patient was worked up with iron panel which showed iron deficiency anemia along with reticulocyte count which was at normal baseline. Currently, the patient's LDH is elevated at 638. Patient does not have any signs of hemolytic anemia such as jaundice (Tbili wnl), thrombosis or bleeding. -Peripheral blood smear ordered -Patient could potentially benefit from IV iron therapy while in the hospital -Repeat iron panel ordered #Poor p.o. 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 Ceballos. Leonel Venegas MD PGY?1
[2024-10-24] MEDS: WATER, STERILE INJ 10 ML VIAL 4.8 ML IV (20:31)
[2024-10-25] VITALS (14 sets, daily range): BP systolic 111–154; BP diastolic 54–93; PULSE 77–101; RESP 16–24; TEMP 36.1–36.9; O2SAT 95–97
[2024-10-25] MEDS: SODIUM CHLORIDE 0.9% 1000 ML 1,000 ML 75 ML IV (05:33)
[2024-10-25 05:52] LABS: Basophils % (Auto) 0 % (0-2.5); Eosinophils % (Auto) 0 % (0-10); Immature Granulocytes % (Auto) 2 % (0-0); Immature Granulocytes Auto 0.11 Thou/mm3 (0.00-0.00); Lymphocytes # (Auto) 0.5 Thou/mm3 (1.0-4.8); Lymphocytes % (Auto) 10 % (10-50); Mean Corpuscular Hemoglobin 25.5 pg (25.0-35.0); Mean Corpuscular Volume 85 fL (80-100); Monocytes # (Auto) 0.7 Thou/mm3 (0.0-0.8); Monocytes % (Auto) 15 % (0-12); Neutrophils # (Auto) 3.3 Thou/mm3 (1.8-7.7); Neutrophils % (Auto) 72 % (37-80); Nucleated Red Blood Cell # 0.02 Thou/mm3 (0.00-0.00); Nucleated Red Blood Cell % 0 /100 WBC (0); Platelet Count 399 Thou/mm3 (140-440); Red Blood Count 2.71 Miln/mm3 (4.00-5.20); White Blood Count 4.6 Thou/mm3 (3.6-11.0)
[2024-10-25 05:59] LABS: Hemoglobin 6.9 g/dL (12.0-16.0)
[2024-10-25 06:15] LABS: Anion Gap 7 (7-16); BUN/Creatinine Ratio 23 Ratio (12-20); Blood Urea Nitrogen 16 mg/dL (9-23); Calcium 7.5 mg/dL (8.3-10.6); Carbon Dioxide 21.6 mMol/L (20.0-31.0); Chloride 106 mMol/L (98-107); Creatinine (Component) 0.7 mg/dL (0.6-1.3); Estimated Creatinine Clearance 44.3 mL/min (>60); Glucose 82 mg/dL (74-106); Osmolality,Calculated 270 (275-295); Sodium 135 mMol/L (136-145); eGFR > 60 See Note
[2024-10-25 06:29] LABS: Path Review Blood Smear Sent to Pathologist
[2024-10-25 07:13] LABS: Hematocrit 22.8 % (36.0-46.0)
[2024-10-25] MEDS: PANTOPRAZOLE 40 MG TABLET PO (08:36)
[2024-10-25] MEDS: METOPROLOL SUCCINATE XL 25 MG TABCR 50 MG PO ×2 (09:43→21:13)
[2024-10-25] MEDS: LACTULOSE SYRUP 20 GM/30 ML UDC PO (10:54)
--- NOTE | 2024-10-25 15:29 | ESPR_ITS ---
<Statement entered by Victoriano Ceballos MD - 10/30/24 12:57> I reviewed above note and agree with findings and plans. I have also personally examined the patient with medicine team and went over assessment and plan with medical team including copywriting intern and resident physician. Documentation for date of: 10/25/24 Subjective Subjective Interval history: Patient evaluated bedside, noted anemia on a.m. labs, hemoglobin 6.9, repeat H&H showed hemoglobin 7.0, acute drop from hemoglobin 8.2 yesterday, ordered stool occult blood, ordered 1 PRBC. Concern for GI bleed, but patient is also severely iron deficient. Continue IV antibiotics for pneumonia. Noted lymphadenopathy on CT scan, can proceed with outpatient workup for lymphoma by PCP. consulted Rad Onc Dr Arce for further recs. Exam Vital Signs Temp Pulse Resp BP Pulse Ox O2 Del Method 97.4 F 82 16 154/60 H 95 Room Air 10/25/24 13:23 10/25/24 13:23 10/25/24 13:23 10/25/24 13:23 10/25/24 13:23 10/25/24 12:00 Narrative Exam PE: Gen: Well-developed and well-nourished. Thin, frail. HEENT: NCAT, PERRLA, EOMI, MMM, anicteric conjunctivae. CVS: normal S1 and S2. RRR. No M/R/G. Resp: CTA B/L. No rhonchi, rales, crackles or wheezing. Abd: soft, non-tender, non-distended. MSK: Good ROM in BUE & BLE. No edema or rash. Neuro: CN II-XII grossly intact. Strength 5/5 in BUE & BLE. Alert and oriented x2, baseline for patient. Psych: appropriate mood and affect. Objective Labs 10/25/24 06:45 10/25/24 05:20 Labs: Laboratory Results - last 24 hr 10/25/24 10/25/24 10/25/24 05:20 06:45 09:40 WBC 4.6 RBC 2.71 L Hgb 6.9 L* 7.0 L Hct 23.0 L 22.8 L MCV 85 MCH 25.5 MCHC 30.0 L RDW Std Deviation 49.0 H Plt Count 399 Neut % (Auto) 72 Lymph % (Auto) 10 [place] % (Auto) 15 H Eos % (Auto) 0 Baso % (Auto) 0 Neut # (Auto) 3.3 Lymph # (Auto) 0.5 L [place] # (Auto) 0.7 Eos # (Auto) 0.0 Baso # (Auto) 0.0 Immature Gran # (Auto) 0.11 H Absolute Nucleated RBC 0.02 H Immature Gran % 2 H Nucleated RBC % 0 Smear Path Review Sent to Pathologist Sodium 135 L Potassium 4.0 Chloride 106 Carbon Dioxide 21.6 Anion Gap 7 BUN 16 Creatinine 0.7 Estim Creat Clear Calc 44.3 L eGFR > 60 BUN/Creatinine Ratio 23 H Glucose 82 Calculated Osmolality 270 L Calcium 7.5 L Blood Type B Positive Antibody Screen NEGATIVE Crossmatch See Detail Blood Bank Wristband ID Yes Quality Measures Quality Measures sepsis Current suspected stage: ruled out Possible source: pulmonary and genitourinary Blood cultures ordered: yes Antibiotic ordered: Yes Advance care planning discussed with:: patient Assessment & Plan Assessment Current Active Medications: Generic Name Dose Route Start Last Admin Trade Name Freq PRN Reason Stop Dose Admin Ceftriaxone Sodium/Dextrose 1 gm in 50 mls @ 100 mls/hr 10/24/24 21:00 10/24/24 20:20 Rocephin/D5w 1gm Iv Premix IV 10/31/24 20:59 100 mls/hr [id number]@2100 MAGGIE Administration Azithromycin 500 mg/ Sodium 250 mls @ 250 mls/hr 10/24/24 21:00 10/24/24 20:31 Chloride IV 10/31/24 20:59 250 mls/hr 2100 MAGGIE Administration Metoprolol Succinate 50 mg 10/25/24 09:00 10/25/24 09:43 Metoprolol Succinate Xl 25 Mg Tabcr PO 11/24/24 08:59 50 mg BID MAGGIE Administration Ondansetron HCl 4 mg 10/24/24 02:08 10/24/24 02:15 Ondansetron Inj 2 Mg/Ml Inj 2 Ml IV 11/23/24 02:07 4 mg Q6HR PRN Administration NAUSEA OR VOMITING Protocol Pantoprazole Sodium 40 mg 10/24/24 10:45 10/25/24 08:36 Pantoprazole 40 Mg Tablet PO 11/23/24 10:44 40 mg QDAY MAGGIE Administration Sennosides 1 tab 10/24/24 01:19 Senna Tablet PO 11/23/24 01:18 QDAY PRN CONSTIPATION Protocol Plan 83-year-old female with past medical history of hypertension, iron deficiency anemia presenting to the ED after she sustained a ground-level fall will be admitted for community-acquired pneumonia and started on IV antibiotics, dietitian referral for poor appetite and poor p.o. intake, workup for anemia and enlarged lymph nodes. #Community-acquired pneumonia Patient presented with failure to thrive picture and per HPI above, daughter states that she has been very weak and bedbound/couch bound. In the ED, sepsis alert was initiated for this patient as she had heart rate of 134, tachypneic with respiratory rate of 20. On exam, patient denies any shortness of breath and is saturating 98 on room air. Chest x-ray did not show any active signs of pneumonia, but CT chest abdomen/pelvis was ordered by ED which showed small consolidations in the lungs, suspicious for multifocal pneumonia WBC of 5.0, BNP of 204, Pro-Abelardo 0.50 -IV ceftriaxone 1 g daily -IV azithromycin 500 mg -Blood cultures ordered -Supplemental oxygen as needed #Lymphadenopathy CT noticed enlarged lymph node in the axillary region, largest 5.1 x 3.1 cm. DDx: PNA versus lymphoma. Patient denies night sweats, fevers, weight loss, increased weakness or lethargy. -Recommend outpatient workup once pneumonia has cleared - consulted Rad Onc Dr Arce for further recs #Ground-Level Fall As per HPI, patient had a ground-level fall while trying to ambulate out of her bed in the dark. Patient's daughter denies that the patient ever hit her head and history taken from patient states that she just tripped while getting out of the bed. Patient denies any generalized pain at this time. Head CT was negative for any acute process, femur x-ray was negative for any fracture, hip x-ray was also negative -Monitor for any changes in mental status -Physical therapy ordered #Anemia, Patient presenting with hemoglobin of 8.0 and MCV of 81. From prior admission patient was worked up with iron panel which showed iron deficiency anemia along with reticulocyte count which was at normal baseline. Currently, the patient's LDH is elevated at 638. Patient does not have any signs of hemolytic anemia such as jaundice (Tbili wnl), thrombosis or bleeding. -Peripheral blood smear ordered -Holding off on IV iron replacement as patient is currently on IV antibiotics for pneumonia, not recommended IV iron replacement during active infection. -Repeat iron panel ordered #Poor p.o. 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 Ceballos. Ashley PGY2
--- NOTE | 2024-10-25 16:39 | PC.NURSE ---
Pt developed chills, temperature was checked 97.8, no other symptoms or complaints. Dr. Bowman notified, recommended warm blankets if pt does not have a fever, continue to monitor for blood in urine or flank pain to rule out hemolytic reaction.
[2024-10-25] MEDS: DiphenhydrAMINE INJ 50 MG/ML VIAL 12.5 MG IVP (16:49)
[2024-10-25 18:44] LABS: Hematocrit 36.3 % (36.0-46.0); Hemoglobin 11.6 g/dL (12.0-16.0)
[2024-10-25] MEDS: cefTRIAXone/D5w 1gm IV premix 1 GM/50 ML BAG IV (20:24)
[2024-10-25] MEDS: PANTOPRAZOLE INJ 40 MG VIAL IVP (21:13)
[2024-10-25] MEDS: AZITHROMYCIN INJ 500 MG in SODIUM CHLORIDE 0.9% 250 ML 250 ML 250 MG IV (21:13)
[2024-10-26] VITALS (10 sets, daily range): BP systolic 118–157; BP diastolic 56–78; PULSE 62–92; RESP 17–27; TEMP 35.9–38.8; O2SAT 95–98
--- NOTE | 2024-10-26 00:30 | PC.NURSE ---
DR. MEZA MADE AWARE OF FEVER 101.9. COOLING MEASURES INITIATED. ORDERS FOR TYLENOL GIVEN. CALLED BACK SINCE PT HAS ALLERGY TO TYLENOL. MD TO REVIEW CHART AND PLACE ORDERS.
[2024-10-26] MEDS: KETOROLAC INJ 30 MG/ML VIAL IVP (00:39)
[2024-10-26 05:10] LABS: Basophils % (Auto) 0 % (0-2.5); Eosinophils % (Auto) 0 % (0-10); Hematocrit 29.6 % (36.0-46.0); Hemoglobin 9.4 g/dL (12.0-16.0); Immature Granulocytes % (Auto) 2 % (0-0); Immature Granulocytes Auto 0.11 Thou/mm3 (0.00-0.00); Lymphocytes # (Auto) 0.5 Thou/mm3 (1.0-4.8); Lymphocytes % (Auto) 9 % (10-50); Mean Corpuscular HGB Conc 31.8 g/dl (31.0-37.0); Mean Corpuscular Hemoglobin 26.4 pg (25.0-35.0); Mean Corpuscular Volume 83 fL (80-100); Monocytes # (Auto) 0.8 Thou/mm3 (0.0-0.8); Monocytes % (Auto) 14 % (0-12); Neutrophils # (Auto) 4.2 Thou/mm3 (1.8-7.7); Neutrophils % (Auto) 74 % (37-80); Nucleated Red Blood Cell % 0 /100 WBC (0); Platelet Count 390 Thou/mm3 (140-440); RDW Standard Deviation 47.6 fL (36.4-46.3); Red Blood Count 3.56 Miln/mm3 (4.00-5.20); White Blood Count 5.7 Thou/mm3 (3.6-11.0)
[2024-10-26 05:37] LABS: Anion Gap 7 (7-16); BUN/Creatinine Ratio 19 Ratio (12-20); Blood Urea Nitrogen 17 mg/dL (9-23); Calcium 7.9 mg/dL (8.3-10.6); Carbon Dioxide 21.8 mMol/L (20.0-31.0); Chloride 106 mMol/L (98-107); Creatinine (Component) 0.9 mg/dL (0.6-1.3); Estimated Creatinine Clearance 34.5 mL/min (>60); Glucose 105 mg/dL (74-106); Osmolality,Calculated 271 (275-295); Potassium 3.8 mMol/L (3.4-5.1); Sodium 135 mMol/L (136-145); eGFR > 60 See Note
--- NOTE | 2024-10-26 06:45 | PD.ONCCONS ---
HPI Data of Consult Requesting Physician: Freddy Wise MD Primary Care Provider: Physician No Primary/Family Consult Narrative Reason for consult: Prominent left axillary adenopathy History of present illness: Patient is an 83-year-old lady admitted following a fall and change in mental status with temperature hypertension tachycardia with CT scan showing multifocal pneumonia and bilateral pleural effusion. Also noted was a large left axillary lymph node 5 x 3 cm. Pneumonia affected right upper lobe in both bases and there was mediastinal upper abdominal lymphadenopathy. Patient receiving supportive care including antibiotics as referred for oncological consultation. A.m. labs 5.7 WBC hemoglobin 9.4, received 1 unit packed cells with prior hemoglobin 7.0. cc:: cc: Freddy Wise MD Past Medical History Past Medical History Comments PMH COMMENT: Hypertension anemia steatotic liver disease. Meds Home Medications and Allergies Home Medications ?Medication ?Instructions ?Recorded ?Confirmed ?Type metoprolol succinate 50 mg 50 mg PO BID 10/04/24 10/24/24 History tablet,extended release 24 hr Allergies Allergy/AdvReac Type Severity Reaction Status Date / Time acetaminophen (From Tylenol) Allergy Severe Hives Verified 10/04/24 13:43 Penicillins Allergy Severe RASH,HIVES Verified 10/04/24 13:43 Exam Vital Signs Temp Pulse Resp BP Pulse Ox O2 Del Method 97.2 F 67 18 118/56 L 96 Room Air 10/26/24 04:00 10/26/24 04:00 10/26/24 04:00 10/26/24 04:00 10/26/24 04:00 10/26/24 04:00 Narrative Exam Appearing tired but in no acute distress. Left palpable axillary adenopathy noted Results Labs 10/26/24 04:45 10/26/24 04:45 Labs: Short CBC 10/25/24 10/25/24 10/26/24 Range/Units 06:45 18:20 04:45 WBC 5.7 (3.6-11.0) Thou/mm3 Hgb 7.0 L 11.6 L D 9.4 L D (12.0-16.0) g/dL Hct 22.8 L 36.3 D 29.6 L (36.0-46.0) % Plt Count 390 (140-440) Thou/mm3 BMP 10/26/24 04:45 Sodium 135 L Potassium 3.8 Chloride 106 Carbon Dioxide 21.8 BUN 17 Creatinine 0.9 Glucose 105 Calcium 7.9 L Assessment and Plan Additional Assessment & Plan Additional Plan: 1. Enlarged left axillary node 5 x 3 cm, with smaller adenopathy noted in chest abdominal region. 2. Tumor markers and left breast ultrasound. 3. Receiving supportive care for pneumonia hypertension anemia 4. Thank you for allowing me to evaluate this patient
[2024-10-26 07:58] LABS: CA 15-3 9.8 U/mL (<32.4); Carcinoembryonic Antigen 2.2 ng/mL (0.0-5.0)
[2024-10-26] MEDS: METOPROLOL SUCCINATE XL 25 MG TABCR 50 MG PO ×2 (09:27→21:01)
[2024-10-26] MEDS: PANTOPRAZOLE INJ 40 MG VIAL IVP ×2 (09:27→21:02)
--- NOTE | 2024-10-26 11:51 | XR_ITS ---
Examination: Breast ultrasound, unilateral, left complete Date and time of exam: October 26, 2024 1305 hours INDICATIONS: Mediastinal lymphadenopathy on CT chest October 23, 2024 Technique: Real-time mckay scale ultrasonographic imaging performed left breast including all 4 quadrants as well as nipple retroareolar and axillary region. Findings: No cystic or solid breast mass 3.7 cm 4.9 cm left axillary lymph nodes with distortion of internal architecture IMPRESSION: BI-RADS Category 4: Suspicious for malignancy Suspicious multiple enlarged left axillary lymph nodes with distorted architecture, biopsy of one of these nodes is needed to exclude carcinoma, lymph node biopsy is amenable to ultrasound-guided percutaneous approach
--- NOTE | 2024-10-26 13:38 | ESPR_ITS ---
<Statement entered by Victoriano Ceballos MD - 10/30/24 12:58> I reviewed above note and agree with findings and plans. I have also personally examined the patient with medicine team and went over assessment and plan with medical team including phd internship and resident physician. <Statement entered by Nathalie Ho MD - 10/26/24 15:07> No acute overnight events. This hemoglobin dropped from 11.6-9.4, CMP unremarkable. Patient still on ceftriaxone and azithromycin, blood culture. 24-hour negative, urine culture is pending. Oncology is involved, tumor markers was ordered, which is negative. Pending Breast US. Will follow-up with results. I personally saw and examined the patient and discussed the assessment and plan with the entire medicine team, including my attending Nathalie Ho M.D. PGY-2 Disclaimer: Despite multiple revisions, due to the dictation software being used, the document bellow may not be free of grammatical errors including phonetic/typographic errors. However, this does not deter from our commitment to providing health care in the patient's best interest in mind. Documentation for date of: 10/26/24 Subjective Subjective Interval history: Overnight: Patient developed a fever 101.9 degrees, resolved with Tylenol. Patient seen and examined at bedside, resting comfortably. Patient denies chest pain, cough, shortness of breath, nausea, vomiting, fatigue, fever, chills. Pending oncology recommendations. Continuing to treat pneumonia with antibiotics. Exam Vital Signs Temp Pulse Resp BP Pulse Ox O2 Del Method 96.6 F L 67 17 133/62 H 96 Room Air 10/26/24 08:00 10/26/24 09:27 10/26/24 08:00 10/26/24 09:27 10/26/24 08:00 10/26/24 08:00 Narrative Exam PE: Gen: Well-developed and well-nourished. Thin, frail. HEENT: NCAT, PERRLA, EOMI, MMM, anicteric conjunctivae. CVS: normal S1 and S2. RRR. No M/R/G. Resp: CTA B/L. No rhonchi, rales, crackles or wheezing. Abd: soft, non-tender, non-distended. MSK: Good ROM in BUE & BLE. No edema or rash. Neuro: CN II-XII grossly intact. Strength 5/5 in BUE & BLE. Alert and oriented x2, baseline for patient. Psych: appropriate mood and affect. Objective Labs 10/26/24 04:45 10/26/24 04:45 Labs: Laboratory Results - last 24 hr 10/25/24 10/25/24 10/26/24 09:40 18:20 04:45 WBC 5.7 RBC 3.56 L Hgb 11.6 L D 9.4 L D Hct 36.3 D 29.6 L MCV 83 MCH 26.4 MCHC 31.8 RDW Std Deviation 47.6 H Plt Count 390 Neut % (Auto) 74 Lymph % (Auto) 9 L Sol[place] % (Auto) 14 H Eos % (Auto) 0 Baso % (Auto) 0 Neut # (Auto) 4.2 Lymph # (Auto) 0.5 L [place] # (Auto) 0.8 Eos # (Auto) 0.0 Baso # (Auto) 0.0 Immature Gran # (Auto) 0.11 H Absolute Nucleated RBC 0.00 Immature Gran % 2 H Nucleated RBC % 0 Sodium 135 L Potassium 3.8 Chloride 106 Carbon Dioxide 21.8 Anion Gap 7 BUN 17 Creatinine 0.9 Estim Creat Clear Calc 34.5 L eGFR > 60 BUN/Creatinine Ratio 19 Glucose 105 Calculated Osmolality 271 L Calcium 7.9 L Carcinoembryonic Ag 2.2 CA 15-3 Antigen 9.8 Crossmatch See Detail Quality Measures Quality Measures sepsis Current suspected stage: ruled out Possible source: pulmonary and genitourinary Blood cultures ordered: yes Antibiotic ordered: Yes Advance care planning discussed with:: patient and child Assessment & Plan Assessment Current Active Medications: Generic Name Dose Route Start Last Admin Trade Name Freq PRN Reason Stop Dose Admin Azithromycin 500 mg 10/26/24 21:00 Azithromycin 250 Mg Tablet PO 10/30/24 21:01 [facility] Protocol Ceftriaxone Sodium/Dextrose 1 gm in 50 mls @ 100 mls/hr 10/24/24 21:00 10/25/24 20:24 Rocephin/D5w 1gm Iv Premix IV 10/31/24 20:59 100 mls/hr QDAY@2100 MAGGIE Administration Metoprolol Succinate 50 mg 10/25/24 09:00 10/26/24 09:27 Metoprolol Succinate Xl 25 Mg Tabcr PO 11/24/24 08:59 50 mg BID MAGGIE Administration Ondansetron HCl 4 mg 10/24/24 02:08 10/24/24 02:15 Ondansetron Inj 2 Mg/Ml Inj 2 Ml IV 11/23/24 02:07 4 mg Q6HR PRN Administration NAUSEA OR VOMITING Protocol Pantoprazole Sodium 40 mg 10/25/24 21:00 10/26/24 09:27 Pantoprazole Inj 40 Mg Vial IVP 11/24/24 20:59 40 mg BID MAGGIE Administration Sennosides 1 tab 10/24/24 01:19 Senna Tablet PO 11/23/24 01:18 QDAY PRN CONSTIPATION Protocol Plan 83-year-old female with past medical history of hypertension, iron deficiency anemia presenting to the ED after she sustained a ground-level fall will be admitted for community-acquired pneumonia and started on IV antibiotics, dietitian referral for poor appetite and poor p.o. intake, workup for anemia and enlarged lymph nodes. #Community-acquired pneumonia Patient presented with failure to thrive picture and per HPI above, daughter states that she has been very weak and bedbound/couch bound. In the ED, sepsis alert was initiated for this patient as she had heart rate of 134, tachypneic with respiratory rate of 20. On exam, patient denies any shortness of breath and is saturating 98 on room air. Chest x-ray did not show any active signs of pneumonia, but CT chest abdomen/pelvis was ordered by ED which showed small consolidations in the lungs, suspicious for multifocal pneumonia WBC of 5.0, BNP of 204, Pro-Abelardo 0.50 Blood cultures negative x 48 hours. -IV ceftriaxone 1 g daily -IV azithromycin 500 mg -Supplemental oxygen as needed #Lymphadenopathy CT noticed enlarged lymph node in the axillary region, largest 5.1 x 3.1 cm. DDx: PNA versus lymphoma. Patient denies night sweats, fevers, weight loss, increased weakness or lethargy. Oncologist Dr. Arce has been consulted. CEA and CA 15-3 antigen testing WNL. Ultrasound of left axillary lymph nodes showed distorted architecture. -Recommend outpatient workup once pneumonia has cleared - Oncology consulted, appreciate recommendations #Ground-Level Fall As per HPI, patient had a ground-level fall while trying to ambulate out of her bed in the dark. Patient's daughter denies that the patient ever hit her head and history taken from patient states that she just tripped while getting out of the bed. Patient denies any generalized pain at this time. Head CT was negative for any acute process, femur x-ray was negative for any fracture, hip x-ray was also negative -Monitor for any changes in mental status -Physical therapy ordered #Anemia Patient presenting with hemoglobin of 8.0 and MCV of 81. From prior admission patient was worked up with iron panel which showed iron deficiency anemia along with reticulocyte count which was at normal baseline. Currently, the patient's LDH is elevated at 638. Patient does not have any signs of hemolytic anemia such as jaundice (Tbili wnl), thrombosis or bleeding. Iron panel indicates iron deficiency anemia. -Peripheral blood smear ordered -Holding off on IV iron replacement as patient is currently on IV antibiotics for pneumonia, not recommended IV iron replacement during active infection. #Poor p.o. 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 Ho PGY?[address] Ceballos. Leonel Venegas MD PGY?1
--- NOTE | 2024-10-26 13:58 | PC.NURSE ---
received a call from patient's daughter Karol stating that she would like to talk to a doctor regarding her mothers plan of care and why Dr. Arce was consulted. MD Bowman made aware and she stated that she would have Dr. Hurtado call ptient's daughter.
--- NOTE | 2024-10-26 15:15 | PC.SS ---
Rounding: Pending Dr. Yazmin turner, pt spiked fever over night
--- NOTE | 2024-10-26 18:35 | PD.IMCONS ---
HPI Data of Consult Requesting Physician: Victoriano Ceballos MD Primary Care Provider: Physician No Primary/Family Consult Narrative Reason for consult: Iron-deficiency anemia H/H 6.9/23.0 History of present illness: 83 years old female brought to the emergency room because of a ground-level fall was found to be septic had pneumonia right upper lobe and both lung bases and possibly UTI subsequently admitted she has been transfused and the hemoglobin went up to 11.6 and 31.3 and now down to 9.4 and 29.6 No history of any GI bleeding She is found to be iron deficient CT scan of the chest abdomen pelvis showed cholelithiasis mediastinal lymphadenopathy and a axillary lymph node palpable at 5 x 3 cm oncology has already been consulted and the tumor markers have been ordered cc:: cc: Victoriano Ceballos MD Review of Systems Review of Systems ROS Unobtainable: unobtainable due to medical condition Past Medical History Surgical History OTHER SURGICAL HX: As in the history of present illness Meds Home Medications and Allergies Home Medications ?Medication ?Instructions ?Recorded ?Confirmed ?Type metoprolol succinate 50 mg 50 mg PO BID 10/04/24 10/24/24 History tablet,extended release 24 hr Allergies Allergy/AdvReac Type Severity Reaction Status Date / Time acetaminophen (From Tylenol) Allergy Severe Hives Verified 10/04/24 13:43 Penicillins Allergy Severe RASH,HIVES Verified 10/04/24 13:43 Exam Vital Signs Temp Pulse Resp BP Pulse Ox O2 Del Method 98.1 F 77 25 H 136/67 H 96 Room Air 10/26/24 16:00 10/26/24 16:00 10/26/24 16:00 10/26/24 16:00 10/26/24 16:00 10/26/24 16:00 Constitutional Comments: Chronically ill-appearing Routine Respiratory Exam Comments: Normal to auscultation Routine Abdominal Exam Comments: Soft nontender Results Labs 10/26/24 04:45 10/26/24 04:45 Labs: Short CBC 10/25/24 10/26/24 Range/Units 18:20 04:45 WBC 5.7 (3.6-11.0) Thou/mm3 Hgb 11.6 L D 9.4 L D (12.0-16.0) g/dL Hct 36.3 D 29.6 L (36.0-46.0) % Plt Count 390 (140-440) Thou/mm3 BMP 10/26/24 04:45 Sodium 135 L Potassium 3.8 Chloride 106 Carbon Dioxide 21.8 BUN 17 Creatinine 0.9 Glucose 105 Calcium 7.9 L Assessment and Plan Additional Assessment & Plan Additional Plan: # Axillary lymphadenopathy along with mediastinal lymphadenopathy Tumor markers are already ordered by oncology Recommend ultrasound-guided biopsy of the axillary palpable lymph node # iron deficiency anemia No signs of any active GI bleed Patient has pressing other medical issues at the moment We can do an outpatient GI workup with upper endoscopy and colonoscopy for the unexplained iron deficiency anemia Thank you very much for the opportunity to participate in the care of this patient
[2024-10-26] MEDS: AZITHROMYCIN 250 MG TABLET 500 MG PO (21:01)
[2024-10-26] MEDS: cefTRIAXone/D5w 1gm IV premix 1 GM/50 ML BAG IV (21:02)
[2024-10-27] VITALS (8 sets, daily range): BP systolic 124–156; BP diastolic 66–73; PULSE 70–91; RESP 19–25; TEMP 36.4–37.1; O2SAT 94–97
[2024-10-27 05:54] LABS: Basophils % (Auto) 1 % (0-2.5); Eosinophils % (Auto) 1 % (0-10); Hematocrit 28.1 % (36.0-46.0); Immature Granulocytes % (Auto) 2 % (0-0); Lymphocytes # (Auto) 0.6 Thou/mm3 (1.0-4.8); Lymphocytes % (Auto) 9 % (10-50); Mean Corpuscular Hemoglobin 27.3 pg (25.0-35.0); Mean Corpuscular Volume 85 fL (80-100); Monocytes # (Auto) 0.7 Thou/mm3 (0.0-0.8); Monocytes % (Auto) 12 % (0-12); Neutrophils % (Auto) 77 % (37-80); Nucleated Red Blood Cell % 0 /100 WBC (0); Platelet Count 336 Thou/mm3 (140-440); RDW Standard Deviation 49.3 fL (36.4-46.3); White Blood Count 6.4 Thou/mm3 (3.6-11.0)
[2024-10-27 06:12] LABS: Alanine Aminotransferase 21 U/L (10-49); Albumin, Serum 1.9 gm/dL (3.4-4.8); Albumin/Globulin Ratio 0.5 (1.2-2.2); Alkaline Phosphatase 94 U/L (46-116); Anion Gap 9 (7-16); Aspartate Amino Transferase 24 U/L (0-34); BUN/Creatinine Ratio 23 Ratio (12-20); Bilirubin,Total 0.3 mg/dL (0.3-1.2); Blood Urea Nitrogen 21 mg/dL (9-23); Calcium 7.8 mg/dL (8.3-10.6); Calcium (Corrected) 9.5 mg/dL (8.5-10.1); Carbon Dioxide 19.8 mMol/L (20.0-31.0); Chloride 104 mMol/L (98-107); Creatinine (Component) 0.9 mg/dL (0.6-1.3); Estimated Creatinine Clearance 34.5 mL/min (>60); Globulin 3.8 gm/dL (2.3-3.5); Glucose 161 mg/dL (74-106); Magnesium 1.8 mg/dL (1.6-2.6); Osmolality,Calculated 272 (275-295); Phosphorous 2.7 mg/dL (2.4-5.1); Potassium 3.6 mMol/L (3.4-5.1); Sodium 133 mMol/L (136-145); Total Protein 5.7 gm/dL (5.7-8.2); eGFR > 60 See Note
--- NOTE | 2024-10-27 06:43 | XR_ITS ---
Examinations: Ultrasound-guided percutaneous left axillary lymph node biopsy Left axillary sonography Exam date and time: October 28, 1999 2520 hours INDICATIONS: Mediastinal lymphadenopathy on CT chest study October 23, 2024 with abnormal left axillary lymph node on left breast sonography October 26, 2024. Informed consent provided. Technique: A timeout was completed verifying correct patient, procedure, site, positioning, and special equipment if applicable Informed consent provided. The patient was placed in a supine position for the axillary lymph node biopsy. Sonographic images of the left axilla were performed for localization of the suspicious nodule The patient's left axilla was prepped and draped in sterile fashion. Maximum sterile barrier technique, hand hygiene, ultrasound sterile technique 1% lidocaine administered for local anesthesia Utilizing ultrasonographic guidance, 8 core biopsies were obtained of the suspicious left axillary mass utilizing an 18-gauge BioPince needle. The specimens appears satisfactory. Estimated blood loss 3 cc. The patient tolerated the procedure well and there were no complications. Impression: Successful ultrasound-guided percutaneous left axillary lymph node biopsy
[2024-10-27] MEDS: METOPROLOL SUCCINATE XL 25 MG TABCR 50 MG PO ×2 (08:51→20:28)
[2024-10-27] MEDS: PANTOPRAZOLE INJ 40 MG VIAL IVP ×2 (08:51→20:28)
--- NOTE | 2024-10-27 11:14 | PC.NURSE ---
Patient transported to ultrasound via dilia Prescott CNA. Patient awake, alert and oriented with no signs of acute distress.
--- NOTE | 2024-10-27 12:23 | PC.SS ---
Shira Castellon is 83-year-old female admitted to Med-Surg for Pneumonia. SS conducted over the phone contact with the patient?s son Washington Castellon [phone] to complete initial assessment and to discuss discharge planning.? Washington confirmed demographic information. He identifies himself as the pt surrogate decision maker. Patient resides at home with him and family. Pt is typically able to complete all ADL?s independently but recently requiring a lot more assistance in which family supports her pt has a walker, cane and wheelchair. Pts PCP is Dr. Moreno [facility] (last visit 2 weeks ago) and her pharmacy of choice is [facility] in [place]. DC options discussed, SS explained PT reccs for SNF for short term rehab, Washington rfused and stated they wish for pt to return home. SS inquired if Home Health is an option for them, per Washington he will speak to his family and let SS know. Pts family will provide transportation upon DC. No further intervention required at this time, transition social worker would be available to address any further concerns. DC Plan: Home Contact: Washington Castellon [phone] PCP: Josh
--- NOTE | 2024-10-27 13:26 | PD.RESDS ---
Planned Discharge Date 10/27/24 DS: Providers Provider Date of admission: 10/24/24 00:31 Primary care physician: Physician No Primary/Family Admitting Provider: Freddy Wise MD Attending Provider on Admission: Victoriano Ceballos MD Consults: 10/24/24 08:00 Referral Physical Therapy Routine Comment: Physician Instructions: Referral Registered Dietitian Routine Comment: 10/25/24 11:40 Consult to Oncology Routine Comment: lymphadenopathy Consulting Provider: Thuan Arce 10/25/24 15:30 Consult to Gastroenterology Routine Comment: Consulting Provider: Lauren Nobles Attending Provider on DC: Leonel Venegas MD Discharging Provider: Leonel Venegas MD Hospital Course Hospital Course Hospital course: 83 years old female brought to the emergency room because of a ground-level fall was found to be septic had pneumonia right upper lobe and both lung bases and possibly UTI subsequently admitted she has been transfused and the hemoglobin went up to 11.6 and 31.3 and now down to 9.4 and 29.6 No history of any GI bleeding She is found to be iron deficient CT scan of the chest abdomen pelvis showed cholelithiasis mediastinal lymphadenopathy and a axillary lymph node palpable at 5 x 3 cm oncology has already been consulted and the tumor markers have been ordered Time Spent with Patient Time attestation: Total time spent providing and/or coordinating discharge services: Exam Vital Signs Temp Pulse Resp BP Pulse Ox O2 Del Method 97.9 F 74 21 H 124/73 97 Room Air 10/27/24 12:00 10/27/24 12:00 10/27/24 12:00 10/27/24 12:00 10/27/24 12:00 10/27/24 12:00 Discharge Plan Problem List Was Problem List Reviewed/Reconciled?: Yes Plan Patient condition on transfer: Stable Prescriptions/Referrals Prescriptions/Med Rec: No Action ibuprofen 600 mg tablet 600 mg PO Q6H PRN (Reason: pain) Qty: 30 0RF metoprolol succinate 50 mg tablet extended release 24 hr 50 mg PO BID Patient Comments: take 1 tablet by mouth twice a day ferric citrate 210 mg iron tablet 210 mg PO QDAY 30 Days Qty: 30 0RF Rx Instructions: administer with a meal Referrals: No Primary/Family,Physician [Primary Care Provider] - Patient/Caregiver Discharge Instructions Discharge Activity: activity as tolerated Education Materials: Lumpectomy or Breast Biopsy Dc Print Language: Irish
--- NOTE | 2024-10-27 14:56 | ESPR_ITS ---
<Statement entered by Victoriano Ceballos MD - 11/03/24 13:47> I reviewed above note and agree with findings and plans. I have also personally examined the patient with medicine team and went over assessment and plan with medical team including internet researcher and resident physician. <Statement entered by Nathalie Ho MD - 10/27/24 15:51> I discussed with and supervised the internet researcher physician who took care of this patient. I personally saw and examined the patient and discussed the assessment and plan with the entire medicine team, including my attending , I agree with the assessment and plan as documented below Nathalie Ho M.D. PGY-2 Disclaimer: Despite multiple revisions, due to the dictation software being used, the document bellow may not be free of grammatical errors including phonetic/typographic errors. However, this does not deter from our commitment to providing health care in the patient's best interest in mind. Documentation for date of: 10/27/24 Subjective Subjective Interval history: No overnight events. Patient seen and examined at bedside, resting comfortably. Patient denies chest pain, cough, shortness of breath, nausea, vomiting, fatigue, fever, chills. Patient reeived biopsy of lymph node, well tolerated. Planning to d/c tomorrow with outpatint follow up, possibly with home health for PT. Exam Vital Signs Temp Pulse Resp BP Pulse Ox O2 Del Method 97.9 F 74 21 H 124/73 97 Room Air 10/27/24 12:00 10/27/24 12:00 10/27/24 12:00 10/27/24 12:00 10/27/24 12:10/27/24 12:00 Narrative Exam PE: Gen: Well-developed and well-nourished. Thin, frail. HEENT: NCAT, PERRLA, EOMI, MMM, anicteric conjunctivae. CVS: normal S1 and S2. RRR. No M/R/G. Resp: CTA B/L. No rhonchi, rales, crackles or wheezing. Abd: soft, non-tender, non-distended. MSK: Good ROM in BUE & BLE. No edema or rash. Neuro: CN II-XII grossly intact. Strength 5/5 in BUE & BLE. Alert and oriented x2, baseline for patient. Psych: appropriate mood and affect. Objective Labs 10/27/24 05:16 10/27/24 05:16 Labs: Laboratory Results - last 24 hr 10/27/24 05:16 WBC 6.4 RBC 3.30 L Hgb 9.0 L Hct 28.1 L MCV 85 MCH 27.3 MCHC 32.0 RDW Std Deviation 49.3 H Plt Count 336 D Neut % (Auto) 77 Lymph % (Auto) 9 L Rolette % (Auto) 12 Eos % (Auto) 1 Baso % (Auto) 1 Neut # (Auto) 5.0 Lymph # (Auto) 0.6 L Rolette # (Auto) 0.7 Eos # (Auto) 0.0 Baso # (Auto) 0.0 Immature Gran # (Auto) 0.10 H Absolute Nucleated RBC 0.00 Immature Gran % 2 H Nucleated RBC % 0 Sodium 133 L Potassium 3.6 Chloride 104 Carbon Dioxide 19.8 L Anion Gap 9 BUN 21 Creatinine 0.9 Estim Creat Clear Calc 34.5 L eGFR > 60 BUN/Creatinine Ratio 23 H Glucose 161 H D Calculated Osmolality 272 L Calcium 7.8 L Corrected Calcium 9.5 Phosphorus 2.7 Magnesium 1.8 Total Bilirubin 0.3 AST 24 ALT 21 Alkaline Phosphatase 94 Total Protein 5.7 Albumin 1.9 L Globulin 3.8 H Albumin/Globulin Ratio 0.5 L Quality Measures Quality Measures sepsis Current suspected stage: ruled out Possible source: pulmonary and genitourinary Blood cultures ordered: yes Antibiotic ordered: Yes Advance care planning discussed with:: patient and child Assessment & Plan Assessment Current Active Medications: Generic Name Dose Route Start Last Admin Trade Name Freq PRN Reason Stop Dose Admin Azithromycin 500 mg 10/26/24 21:00 10/26/24 21:01 Azithromycin 250 Mg Tablet PO 10/30/24 21:01 500 mg 2100 MAGGIE Administration Protocol Ceftriaxone Sodium/Dextrose 1 gm in 50 mls @ 100 mls/hr 10/24/24 21:00 10/26/24 21:02 Rocephin/D5w 1gm Iv Premix IV 10/31/24 20:59 100 mls/hr QDAY@2100 MAGGIE Administration Metoprolol Succinate 50 mg 10/25/24 09:00 10/27/24 08:51 Metoprolol Succinate Xl 25 Mg Tabcr PO 11/24/24 08:59 50 mg BID MAGGIE Administration Ondansetron HCl 4 mg 10/24/24 02:08 10/24/24 02:15 Ondansetron Inj 2 Mg/Ml Inj 2 Ml IV 11/23/24 02:07 4 mg Q6HR PRN Administration NAUSEA OR VOMITING Protocol Pantoprazole Sodium 40 mg 10/25/24 21:00 10/27/24 08:51 Pantoprazole Inj 40 Mg Vial IVP 11/24/24 20:59 40 mg BID MAGGIE Administration Sennosides 1 tab 10/24/24 01:19 Senna Tablet PO 11/23/24 01:18 QDAY PRN CONSTIPATION Protocol Plan 83-year-old female with past medical history of hypertension, iron deficiency anemia presenting to the ED after she sustained a ground-level fall will be admitted for community-acquired pneumonia and started on IV antibiotics, dietitian referral for poor appetite and poor p.o. intake, workup for anemia and enlarged lymph nodes. #Community-acquired pneumonia Patient presented with failure to thrive picture and per HPI above, daughter states that she has been very weak and bedbound/couch bound. In the ED, sepsis alert was initiated for this patient as she had heart rate of 134, tachypneic with respiratory rate of 20. On exam, patient denies any shortness of breath and is saturating 98 on room air. Chest x-ray did not show any active signs of pneumonia, but CT chest abdomen/pelvis was ordered by ED which showed small consolidations in the lungs, suspicious for multifocal pneumonia WBC of 5.0, BNP of 204, Pro-Abelardo 0.50 Blood cultures negative x 48 hours. -IV ceftriaxone 1 g daily -IV azithromycin 500 mg -Supplemental oxygen as needed #Lymphadenopathy CT noticed enlarged lymph node in the axillary region, largest 5.1 x 3.1 cm. DDx: PNA versus lymphoma. Patient denies night sweats, fevers, weight loss, increased weakness or lethargy. Oncologist Dr. Arce has been consulted. CEA and CA 15-3 antigen testing WNL. Ultrasound of left axillary lymph nodes showed distorted architecture. Biopsy completed, to be followed up outpatient. -Recommend outpatient workup once pneumonia has cleared - Oncology consulted, appreciate recommendations #Ground-Level Fall As per HPI, patient had a ground-level fall while trying to ambulate out of her bed in the dark. Patient's daughter denies that the patient ever hit her head and history taken from patient states that she just tripped while getting out of the bed. Patient denies any generalized pain at this time. Head CT was negative for any acute process, femur x-ray was negative for any fracture, hip x-ray was also negative -Monitor for any changes in mental status -Physical therapy ordered, possible home health pending family preferences #Anemia Patient presenting with hemoglobin of 8.0 and MCV of 81. From prior admission patient was worked up with iron panel which showed iron deficiency anemia along with reticulocyte count which was at normal baseline. Currently, the patient's LDH is elevated at 638. Patient does not have any signs of hemolytic anemia such as jaundice (Tbili wnl), thrombosis or bleeding. Iron panel indicates iron deficiency anemia. -Outpatient GI workup -Holding off on IV iron replacement as patient is currently on IV antibiotics for pneumonia, not recommended IV iron replacement during active infection. #Poor p.o. 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 Ho PGY?[address] Ceballos. Leonel Venegas MD PGY?1
--- NOTE | 2024-10-27 15:48 | PC.SS ---
SS received call from patient's dtr, Karol who states she is person to contact for pt and is requesting pt d/c to SNF. Per dtrKarol, SNF was recommended by PT. SS will follow up with sending inquiry to the local SNF.
--- NOTE | 2024-10-27 17:32 | PC.PT ---
Patient is safe to ambulate to the bathroom with 1 staff assist and a FWW for safety. RN made aware.
[2024-10-27] MEDS: cefTRIAXone/D5w 1gm IV premix 1 GM/50 ML BAG IV (20:27)
[2024-10-27] MEDS: AZITHROMYCIN 250 MG TABLET 500 MG PO (20:27)
[2024-10-28] VITALS: BP 151/70; PULSE 80; PULSE 81; RESP 19; TEMP 36.6; O2SAT 96
[2024-10-28 04:00] VITALS: BP 133/64; PULSE 81; PULSE 82; RESP 14; TEMP 36.4; O2SAT 96
[2024-10-28 05:52] LABS: OBS Card Expiration Date 2026-09; OBS Card Lot # 23001; OBS Developer Expiration Date 2026-09; OBS Developer Lot # 28005; OBS Performed By loped2; OBS QC OK? Yes; Occult Blood, Stool Negative (Negative)
[2024-10-28 08:00] VITALS: BP 125/59; PULSE 83; RESP 20; TEMP 36.5; O2SAT 96
[2024-10-28 08:27] VITALS: BP 125/59; PULSE 83
[2024-10-28] MEDS: METOPROLOL SUCCINATE XL 25 MG TABCR 50 MG PO (08:27)
[2024-10-28] MEDS: PANTOPRAZOLE INJ 40 MG VIAL IVP (08:27)
--- NOTE | 2024-10-28 08:43 | PC.SS ---
SS received a call from Karol, pt dtr [phone] in regards to DC plan. Karol stated they would like pt to DC to SNF for short term rehab. [facility], per Karol they wish NOT to send to [facility]. updated JOHNNY Moreno.
--- NOTE | 2024-10-28 09:25 | PC.SS ---
Addendum entered by JOHNNY Back 10/28/24 14:36: ETA [facility]. Addendum entered by JOHNNY Back 10/28/24 13:51: PASRR was E-File exchanged to [facility]. Addendum entered by JOHNNY Back 10/28/24 10:49: Attempted to schedule [facility] ride for the patient, however patient was not found on the system. [facility] reference number provided: [id number]. Pending ETA for transport. Addendum entered by JOHNNY Back 10/28/24 10:20: SS follow up:spoke with patient's daughter, Karol [phone] in regards to SNF choices. She identified [facility]. Diane at [place] [place] confirmed they can accept the patient today at their facility. Patient has DC orders for today. Addendum entered by JOHNNY Back 10/28/24 09:30: PASRR completed. LV1. Original Note: SS follow up: faxed referral to [facility] and [facility].
[2024-10-28 09:56] LABS: Basophils % (Auto) 0 % (0-2.5); Eosinophils # (Auto) 0.1 Thou/mm3 (0.0-0.5); Eosinophils % (Auto) 1 % (0-10); Hematocrit 28.5 % (36.0-46.0); Immature Granulocytes % (Auto) 2 % (0-0); Immature Granulocytes Auto 0.12 Thou/mm3 (0.00-0.00); Lymphocytes # (Auto) 0.4 Thou/mm3 (1.0-4.8); Lymphocytes % (Auto) 7 % (10-50); Mean Corpuscular HGB Conc 31.6 g/dl (31.0-37.0); Mean Corpuscular Hemoglobin 26.4 pg (25.0-35.0); Mean Corpuscular Volume 84 fL (80-100); Monocytes # (Auto) 0.7 Thou/mm3 (0.0-0.8); Monocytes % (Auto) 11 % (0-12); Neutrophils % (Auto) 79 % (37-80); Nucleated Red Blood Cell % 0 /100 WBC (0); Platelet Count 346 Thou/mm3 (140-440); RDW Standard Deviation 50.7 fL (36.4-46.3); Red Blood Count 3.41 Miln/mm3 (4.00-5.20); White Blood Count 6.3 Thou/mm3 (3.6-11.0)
[2024-10-28 10:20] LABS: Alanine Aminotransferase 29 U/L (10-49); Albumin/Globulin Ratio 0.5 (1.2-2.2); Alkaline Phosphatase 104 U/L (46-116); Anion Gap 7 (7-16); Aspartate Amino Transferase 46 U/L (0-34); BUN/Creatinine Ratio 26 Ratio (12-20); Bilirubin,Total 0.4 mg/dL (0.3-1.2); Blood Urea Nitrogen 21 mg/dL (9-23); Calcium 8.1 mg/dL (8.3-10.6); Calcium (Corrected) 9.7 mg/dL (8.5-10.1); Carbon Dioxide 21.5 mMol/L (20.0-31.0); Chloride 105 mMol/L (98-107); Creatinine (Component) 0.8 mg/dL (0.6-1.3); Estimated Creatinine Clearance 38.8 mL/min (>60); Glucose 118 mg/dL (74-106); Osmolality,Calculated 270 (275-295); Potassium 3.6 mMol/L (3.4-5.1); Sodium 133 mMol/L (136-145); eGFR > 60 See Note
[2024-10-28 12:00] VITALS: BP 110/55; PULSE 68; PULSE 74; RESP 22; TEMP 36.1; O2SAT 96
--- NOTE | 2024-10-28 14:19 | ESDS_ITS ---
<Statement entered by Victoriano Ceballos MD - 11/03/24 13:48> I reviewed above note and agree with findings and plans. I have also personally examined the patient with medicine team and went over assessment and plan with medical team including international bank manager and resident physician. <Statement entered by Nathalie Ho MD - 10/28/24 18:29> I discussed with and supervised the international bank manager physician who took care of this patient. I personally saw and examined the patient and discussed the assessment and plan with the entire medicine team, including my attending , I agree with the assessment and plan as documented below Nathalie Ho M.D. PGY-2 Disclaimer: Despite multiple revisions, due to the dictation software being used, the document bellow may not be free of grammatical errors including phonetic/typographic errors. However, this does not deter from our commitment to providing health care in the patient's best interest in mind. Planned Discharge Date 10/28/24 DS: Providers Provider Date of admission: 10/24/24 00:31 Primary care physician: Physician No Primary/Family Admitting Provider: Freddy Wise MD Attending Provider on Admission: Victoriano Ceballos MD Consults: 10/24/24 08:00 Referral Physical Therapy Routine Comment: Physician Instructions: Referral Registered Dietitian Routine Comment: 10/25/24 11:40 Consult to Oncology Routine Comment: lymphadenopathy Consulting Provider: Thuan Arce 10/25/24 15:30 Consult to Gastroenterology Routine Comment: Consulting Provider: Lauren Nobles Attending Provider on DC: Victoriano Ceballos MD Discharging Provider: Leonel Venegas MD DS: Diagnosis Problem List Completed Was Problem List Reviewed/Reconciled?: Yes Hospital Course Hospital Course Hospital course: 83-year-old female with past medical history of hypertension, iron deficiency anemia presenting to the ED on 10/23/2024 after she sustained a ground-level fall, admitted for acquired pneumonia and workup of lymphadenopathy. Patient had CT scan which showed significant left axillary lymphadenopathy, and multifocal pneumonia. Patient received appropriate antibiotics for pneumonia treatment. Patient was also found to be anemic. GI was consulted, recommended outpatient workup. Oncology was consulted for lymphadenopathy, patient received ultrasound guided biopsy. PT eval recommended SNF placement for acute rehab, family and patient agreeable. Patient cleared for discharge from GI active, oncology perspective. Patient medically stable and cleared for discharge. Discharge plan: You have been started on the following medications: - Azithromycin 5 mg 1 tab - Cefuroxime 500 mg twice daily for 5 days - Famotidine 20 mg once daily Please continue taking all other medications as previously prescribed. Please follow-up with your primary doctor within 1-2 weeks. Please seek referral to oncologist Dr. Arce for further workup if desired. Please seek referral to GI for outpatient workup of anemia. Please return to the ED if you develop new or worsening symptoms. Diagnoses: #Community-acquired pneumonia #Lymphadenopathy #Ground-Level Fall #Anemia #Poor p.o. intake #Metabolic dysfunction-associated steatotic liver disease #Hypertension Plan of care discussed with senior resident Dr. Ho PGY?[address] Ceballos. Leonel Venegas MD PGY?1 Status at Discharge Overall status at discharge: patient is progressing back to baseline Time Spent with Patient Time attestation: Total time spent providing and/or coordinating discharge services: Time spent: Greater than 30 minutes Exam Vital Signs Temp Pulse Resp BP Pulse Ox O2 Del Method 97.0 F 74 22 H 110/55 L 96 Room Air 10/28/24 12:10/28/24 12:10/28/24 12:00 10/28/24 12:00 10/28/24 12:10/28/24 12:00 Narrative Exam PE: Gen: Well-developed and well-nourished. Thin, frail. HEENT: NCAT, PERRLA, EOMI, MMM, anicteric conjunctivae. CVS: normal S1 and S2. RRR. No M/R/G. Resp: CTA B/L. No rhonchi, rales, crackles or wheezing. Abd: soft, non-tender, non-distended. MSK: Good ROM in BUE & BLE. No edema or rash. Neuro: CN II-XII grossly intact. Strength 5/5 in BUE & BLE. Alert and oriented x 2, baseline for patient. Psych: appropriate mood and affect. Discharge Plan Plan Patient Disposition: [facility] Patient condition on transfer: Stable Care Plan Goals: You have been started on the following medications: - Azithromycin 5 mg 1 tab - Cefuroxime 500 mg twice daily for 5 days - Famotidine 20 mg once daily Please continue taking all other medications as previously prescribed. Please follow-up with your primary doctor within 1-2 weeks. Please seek referral to oncologist Dr. Arce for further workup if desired. Please seek referral to GI for outpatient workup of anemia. Please return to the ED if you develop new or worsening symptoms. Prescriptions/Referrals Prescriptions/Med Rec: New cefuroxime axetil 500 mg tablet 500 mg PO BID 5 Days Qty: 10 0RF azithromycin 500 mg tablet 500 mg PO QDAY 1 Days Qty: 1 0RF famotidine 20 mg tablet 20 mg PO QDAY 30 Days Qty: 30 0RF Continued ibuprofen 600 mg tablet 600 mg PO Q6H PRN (Reason: pain) Qty: 30 0RF metoprolol succinate 50 mg tablet extended release 24 hr 50 mg PO BID Patient Comments: take 1 tablet by mouth twice a day ferric citrate 210 mg iron tablet 210 mg PO QDAY 30 Days Qty: 30 0RF Rx Instructions: administer with a meal Referrals: No Primary/Family,Physician [Primary Care Provider] - Patient/Caregiver Discharge Instructions Discharge Activity: activity as tolerated Education Materials: Lumpectomy or Breast Biopsy Dc Print Language: Mauritian Stand Alone Forms: Maria [facility] Award Info., Patient Portal Info Letter Discharge Order Discharge Orders: Discharge (Routine); Ordered 10/28/24 Ordered By: Leonel Venegas Quality Discharge Quality Measures VTE prophylaxis
[2024-10-28 16:00] VITALS: BP 160/71; PULSE 68; PULSE 73; RESP 18; TEMP 36.2; O2SAT 96
== END 2024-10-28 16:35 | disposition skilled nursing facility (03) | DRG 988 ==
LOC: SERX 10-24 00:31 → SERHOLD 10-24 01:03 → S3SX 10-24 08:18 → S2NX 10-24 16:10
PROVIDERS: Radiology Therapeutic Radiology; Student in an Organized Health Care Education/Training Program; Admitting Provider Internal Medicine; Emergency Provider Emergency Medicine; Visit Provider Internal Medicine
DX: J18.9 Pneumonia, unspecified organism (principal); E87.1 Hypo-osmolality and hyponatremia; N39.0 Urinary tract infection, site not specified; J90 Pleural effusion, not elsewhere classified; I10 Essential (primary) hypertension; R59.0 Localized enlarged lymph nodes; D50.9 Iron deficiency anemia, unspecified; R54 Age-related physical debility; K76.9 Liver disease, unspecified; Z66 Do not resuscitate; K80.20 Calculus of gallbladder without cholecystitis without obstruction; S00.03XA Contusion of scalp, initial encounter; R62.7 Adult failure to thrive; Z88.6 Allergy status to analgesic agent; Z98.51 Tubal ligation status; Z88.0 Allergy status to penicillin; W01.0XXA Fall on same level from slipping, tripping and stumbling without subsequent striking against object, initial encounter; Y92.009 Unspecified place in unspecified non-institutional (private) residence as the place of occurrence of the external cause
CPT/HCPCS: 36415; 70450; 71045; 71260; 72125; 73502; 73552; 74177; 76641; 80048; 80053; 81001; 82270; 82378; 82550; 83540; 83550; 83605; 83615; 83690; 83735; 83880; 84100; 84145; 84484; 85014; 85018; 85025; 85610; 85730; 86300; 86850; 86900; 86901; 86923; 87040; 87077; 87086; 87186; 87400; 87811; 93005; 96361; 96365; 96367; 96374; 97161; 99291; A4216; A4649; J0456; J0696; J1200; J1643; J1885; J2405; J2470; J3475; J7030; J7050; P9016; Q9967; A9270

== ENCOUNTER 2024-11-02 08:59 | Outpatient (AMB) | payer MEDICARE, MEDICAID, SELFPAY ==
[2024-11-02 09:12] VITALS: BP 121/69; PULSE 96; RESP 18; TEMP 36.6; O2SAT 92
--- NOTE | 2024-11-02 09:12 | PD.RESCLINIC ---
Vital Signs 11/02/24 09:12 Weight Measurement Method Wheelchair BP 121/69 Blood Pressure Source Automatic Cuff Blood Pressure Location Left Upper Arm Position Sitting Respiration 18 Pulse 96 Pulse Source Monitor Temp 97.8 F Temp Source Temporal Artery Scan Pulse Oximetry (%) 92 L Oxygen Delivery Method Room Air Allergies/Meds Allergies & Medications Allergies acetaminophen (From Tylenol) Allergy (Severe, Verified 11/02/24 09:13) Hives Penicillins Allergy (Severe, Verified 11/02/24 09:13) RASH,HIVES Medication Reconciliation ibuprofen 600 mg tablet 600 mg PO Q6H PRN pain #30 tabs 12/11/20 [Rx Confirmed 11/02/24] metoprolol succinate 50 mg tablet,extended release 24 hr 50 mg PO BID 10/04/24 [History Confirmed 11/02/24] ferric citrate 210 mg iron tablet 210 mg PO QDAY 1 month #30 tabs 10/06/24 [Rx Confirmed 11/02/24] famotidine 20 mg tablet 20 mg PO QDAY 1 month #30 tabs 10/27/24 [Rx Confirmed 11/02/24] MA Intake Visit Data Collection New Patient or Established: Established Patient (seen at [facility] within 3 years) Seen by Clinical Staff ONLY (RN/MA): No Pain Present Currently: No Pain scale:: 0 Pain Scale Used: Ibarra-Bethea/Numerical Respiratory Manager Required: Yes PCP or OBGYN visit in last 3 months: No Hx Now: No Do You Feel Safe at Home: Yes Authorities Contacted: N/A Smoking Status Smoking Status: Never smoker Immunization / Flu Flu Vaccine in the Last 12 Months: No Flu Vaccine Exclusion Criteria: No Exclusion Criteria Past Medical History Past Medical History NEUROLOGIC: Negative Neurological Disorders CARDIAC: Positive Cardiac Disorders and Hypertension; Negative Congestive Heart Failure RESPIRATORY: Negative Chronic Obstructive Pulmonary Disease (COPD) GASTROINTESTINAL: Negative Gastrointestinal Disorders GENITOURINARY: Negative Genitourinary Disorders or Renal Disease ENDOCRINE: Negative Endocrine Disorders, Diabetes Mellitus Type 1 or Diabetes Mellitus Type 2 HEMATOLOGIC: Positive Blood Disorders and Anemia OTHER HISTORY: Positive Hospitalization and Anesthesia Reactions; Negative Autoimmune Disease, Down Syndrome, Developmental Delay, Shingles, Falls, Blood Transfusions or Cancer Family History FAMILY HISTORY: Negative Family Psychiatric Problems, Family Respiratory Disorders, Family Cardiac Disorders, Family Gastrointestinal Problems, Family Cancer or Family Surgery Surgical History SURGICAL: Positive Tubal Ligation Social History SMOKING STATUS: Smoking status: Never smoker ALCOHOL: Alcohol Intake: Never ALCOHOL FREQUENCY: Alcohol Intake Frequency: 0-2 Drinks per Day HOUSING: Housing: House LIVES WITH: Lives With: Family Patient Portal [place] Social History Living Situation History Housing: House Tobacco History Smoking Status: Never smoker Alcohol History Alcohol Intake: Never Alcohol Intake Frequency: 0-2 Drinks per Day Domestic Abuse History Do You Feel Safe at Home: Yes Review of Systems Report any current symptoms Only answer those that you have currently: Past Medical History Past Medical History Have you ever been diagnosed with any of the following: Cardiology Problems Congestive Heart Failure: No Hypertension: Yes Respiratory Problems Chronic Obstructive Pulmonary Disease (COPD): No Genital/Urinary Problems Renal Disease: No Endocrine Problems Diabetes Mellitus Type 1: No Diabetes Mellitus Type 2: No Blood Problems Anemia: Yes Other Problems Hospitalization: Yes Autoimmune Disease: No Down Syndrome: No Developmental Delay: No Shingles: No Falls: No Blood Transfusions: No Anesthesia Reactions: Yes Cancer: No History of Present Illness HPI Narrative 83-year-old female with past medical history of hypertension, iron deficiency anemia presented to office for follow up of recent hospitilization. Patient was seen at [facility] following ground level fall. During stay, imaging had incidental finding of lymphadenopathy in the left axillary region. Patient received inpatient ultrasound-guided biopsy, presents to the office to follow-up on results and discuss next steps. Pathology report on biopsy shows pulmonary reading of malignancy, unable to determine specific type. Specimen has been sent to referral lab for further studies. These results were discussed with patient, who wishes to meet with oncologist to discuss treatment options and potential next steps. Patient is otherwise feeling well at this time. Review of Systems Review of Systems Systems Reviewed: All systems reviewed, normal except as documented Objective/Exam Narrative Physical exam: PE: Gen: Well-developed and well-nourished. Thin, frail. HEENT: NCAT, PERRLA, EOMI, MMM, anicteric conjunctivae. CVS: normal S1 and S2. RRR. No M/R/G. Resp: CTA B/L. No rhonchi, rales, crackles or wheezing. Abd: soft, non-tender, non-distended. MSK: Good ROM in BUE & BLE. No edema or rash. Neuro: CN II-XII grossly intact. Strength 5/5 in BUE & BLE. Alert and oriented x2, baseline for patient. Psych: appropriate mood and affect. Assessment & Plan Diagnosis / Problem List (1) Malignancy: Status: Acute Assessment & Plan: Patient had incidental finding of lymphadenopathy on CT scan. Ultrasound-guided biopsy confirmed malignancy, unable determine which type. Biopsy specimen sent to referral lab for further testing. Patient additionally considering hospice, but wished to be with oncologist for further discussion of options. Plan: - Ref[facility] Orders: Referrals Oncology C80.1 - Malignant (primary) neoplasm, unspecified Additional Assessment Internal Medicine Attending Note: Case discussed with and agree with note and management plan of Resident Physician as per Resident's Note above. Issues of concern for present visit are as follows: New patient to clinic. Seen in follow-up from recent hospitalization for ground-level fall. Imaging showed lymphadenopathy in left axillary region. Ultrasound-guided biopsy was performed. Preliminary report on biopsy shows malignancy of undetermined type, specimen has been sent to referral lab for further studies. Patient will be referred to oncologist to discuss treatment options and potential next steps. Afebrile with stable vital signs today. Blood pressure reading normal, down from day of hospital discharge. Amadeo Méndez MD Advanced Care Planning Advance care planning discussed with:: patient and child Physician Billing Established Patient Established Patient: E/M Level 3-CPT 07835 Office Procedures [facility] Level of Care Nursing/Assessment Patient Status: Established Patient Nursing Assessment/Reassessment: Medication Reconciliation, Update PMH in EMR and Vital Signs Coordination of Care: Complex Care and Chronic Disease 1-5, Consent,records obtained, informed consent, Education Simp Pt/Fam, Lab and Imaging orders and Staff clarify orders Established Patient Charge Established Patient Point Assignment: 100 Established Patient Point Charge: EP Level 3 (80-115)
== END 2024-11-02 09:39 | disposition home or self-care (01) ==
LOC: HODAHC 08:59
PROVIDERS: PCP Physician Assistant; Referring Provider Physician Assistant
DX: C34.90 Malignant neoplasm of unspecified part of unspecified bronchus or lung (principal)
CPT/HCPCS: 99213; G0463